=== PATIENT | male | born 1960 | race African-American/Black ===

== ENCOUNTER 2016-11-14 12:17 | Inpatient (IN) | payer MEDICAID ==
[~2016-11-14] VITALS: Ht 170.2 cm; Wt 99.1 kg
[~2016-11-14 12:17] MED LIST: ALPR2TAB2 PO; HYDR12.529 PO; NORT10CA PO; OMEP20CA4 PO
[2016-11-14] MEDS ORDERED: FURO-151 PO (12:31)
[2016-11-14 13:35] LABS: INR 1.1; PROTHROMBIN TIME 11.6 sec (9.4-11.6)
[2016-11-14 13:36] LABS: CARBON DIOXIDE 26 mEq/L (21-32); CHLORIDE 107 mEq/L (98-107)
[2016-11-14 13:39] LABS: BASOPHILS % 1.6 % (0.0-2.0); EOSINOPHILS % 1.6 % (0.0-5.0); HEMATOCRIT. 31.9 % (42.0-52.0); HEMOGLOBIN. 9.2 g/dL (14.0-18.0); LYMPHOCYTES % 14.6 % (20.0-50.0); MEAN CORPUSCULAR HEMOGLOBIN 18.3 pg (28.0-32.0); MEAN CORPUSCULAR VOLUME 63.2 fL (80.0-94.0); MEAN PLATELET VOLUME 9.3 fl (7.4-10.4); MONOCYTES % 9.8 % (2.0-8.0); NEUTROPHILS % 72.4 % (40.0-76.0); PLATELET 161 x1000/uL (130-400); RED BLOOD CELL COUNT 5.05 mill/uL (4.7-6.1); RED CELL DISTRIBUTION WIDTH 21.4 % (11.6-14.6)
[2016-11-14 13:43] LABS: TROPONIN I 0.04 ng/mL (0.00-0.04)
[2016-11-14] MEDS ORDERED: FUROSEMIDE 40MG/4ML VIAL IVP ONE (14:00)
[2016-11-14 14:21] LABS: PLATELET ESTIMATE NORMAL
[2016-11-14] MEDS ORDERED: ONDANSETRON HCL 4MG/2ML VIAL IV PRN (15:45)
[2016-11-14] MEDS ORDERED: ASPIRIN 325MG EC TABLET PO NR (15:45)
[2016-11-14] MEDS ORDERED: CLONIDINE 0.1MG TABLET PO PRN (15:45)
[2016-11-14] MEDS ORDERED: DOCUSATE SODIUM 100MG CAPSULE PO PRN (15:45)
[2016-11-14] MEDS ORDERED: MAGNESIUM/ALUMINUM HYDROXIDE/SIMETHICONE 30ML UDC PO PRN (15:45)
[2016-11-14] MEDS ORDERED: ACETAMINOPHEN 650MG/20.3ML UDC GT PRN (15:45)
[2016-11-14 16:19] LABS: BASOPHILS % 1.6 % (0.0-2.0); EOSINOPHILS % 1.2 % (0.0-5.0); HEMATOCRIT. 31.7 % (42.0-52.0); HEMOGLOBIN. 9.3 g/dL (14.0-18.0); LYMPHOCYTES % 16.7 % (20.0-50.0); MEAN CORPUSCULAR HEMOGLOBIN 18.5 pg (28.0-32.0); MEAN CORPUSCULAR VOLUME 63.2 fL (80.0-94.0); MEAN PLATELET VOLUME 9.3 fl (7.4-10.4); MONOCYTES % 11.3 % (2.0-8.0); NEUTROPHILS % 69.2 % (40.0-76.0); PLATELET 160 x1000/uL (130-400); RED BLOOD CELL COUNT 5.01 mill/uL (4.7-6.1); RED CELL DISTRIBUTION WIDTH 21.2 % (11.6-14.6)
[2016-11-14] MEDS: HYDROCODONE/ACETAMINOPHEN 5/325MG TABLET PO PRN ×2 (16:24→21:24)
[2016-11-14] MEDS ORDERED: LORAZEPAM 1MG TABLET PO ONE (17:00)
[2016-11-14 20:45] VITALS: BP 134/86
[2016-11-14 20:56] VITALS: BP 117/74
[2016-11-14 21:00] VITALS: BP 134/86
[2016-11-14] MEDS: CARVEDILOL 3.125 MG TABLET PO SCH (21:11)
[2016-11-14] MEDS: ENOXAPARIN 30MG/0.3ML SYR SUBCUT SCH (21:11)
[2016-11-15 00:10] VITALS: BP 149/91
[2016-11-15] MEDS: HYDROCODONE/ACETAMINOPHEN 5/325MG TABLET PO PRN ×4 (01:49→19:58)
[2016-11-15 04:48] VITALS: BP 141/98
[2016-11-15 05:27] LABS: CLARITY URINE CLEAR (CLEAR); COLOR URINE YELLOW (YELLOW); GLUCOSE URINE NEGATIVE (NEGATIVE); KETONES URINE NEGATIVE (NEGATIVE); LEUKOCYTE ESTERASE URINE NEGATIVE (NEGATIVE); NITRITE URINE NEGATIVE (NEGATIVE); OCCULT BLOOD URINE NEGATIVE (NEGATIVE); PH URINE 6.5 (4.5-8.0); PROTEIN URINE TRACE (NEGATIVE); SPECIFIC GRAVITY URINE 1.022 (1.005-1.030)
[2016-11-15 05:41] LABS: *AMPHETAMINES SCREEN URINE NEGATIVE (NEGATIVE); *BARBITURATES SCREEN URINE NEGATIVE (NEGATIVE); *BENZODIAZEPINES SCREEN URINE NEGATIVE (NEGATIVE); *COCAINE SCREEN URINE PRESUMTIVE POSITIVE (NEGATIVE); CANNABINOID URINE SCREEN NEGATIVE (NEGATIVE); METHADONE URINE SCREEN NEGATIVE (NEGATIVE); OPIATES URINE SCREEN PRESUMTIVE POSITIVE (NEGATIVE); PHENCYCLIDINE URINE SCREEN NEGATIVE (NEGATIVE)
[2016-11-15] MEDS: OMEPRAZOLE 20MG CAPSULE EXTENDED RELEASE PO SCH (06:18)
[2016-11-15 08:18] LABS: BASOPHILS % 1.1 % (0.0-2.0); EOSINOPHILS % 2.4 % (0.0-5.0); HEMATOCRIT. 31.4 % (42.0-52.0); MEAN CORPUSCULAR HEMOGLOBIN 18.4 pg (28.0-32.0); MEAN CORPUSCULAR VOLUME 63.9 fL (80.0-94.0); MEAN PLATELET VOLUME 9.6 fl (7.4-10.4); MONOCYTES % 11.9 % (2.0-8.0); NEUTROPHILS % 64.6 % (40.0-76.0); PLATELET 148 x1000/uL (130-400); RED BLOOD CELL COUNT 4.92 mill/uL (4.7-6.1); RED CELL DISTRIBUTION WIDTH 22.1 % (11.6-14.6)
[2016-11-15 08:39] VITALS: BP 141/95
[2016-11-15] MEDS: FUROSEMIDE 40MG/4ML VIAL IVP SCH ×2 (09:00→17:26)
[2016-11-15] MEDS ORDERED: LOSARTAN POTASSIUM 25 MG TABLET PO SCH (09:00)
[2016-11-15] MEDS: CARVEDILOL 3.125 MG TABLET PO SCH ×2 (09:01→20:00)
[2016-11-15] MEDS: POTASSIUM CHLORIDE 10MEQ TABLET SR PO SCH (09:01)
[2016-11-15] MEDS: ENOXAPARIN 30MG/0.3ML SYR SUBCUT SCH ×2 (09:01→20:01)
[2016-11-15 09:15] LABS: CREATINE KINASE MB FRACTION 2.7 ng/mL (0.5-3.6); TROPONIN I 0.04 ng/mL (0.00-0.04)
[2016-11-15] MEDS ORDERED: FUROSEMIDE 40MG/4ML VIAL IVP SCH (13:45)
[2016-11-15] MEDS: CLOPIDOGREL 75MG TABLET PO SCH (14:01)
[2016-11-15] MEDS: AMLODIPINE 5MG TABLET PO SCH (14:01)
[2016-11-15] MEDS: IPRATROPIUM/ALBUTEROL 0.5-3(2.5)MG/3ML NEB HHN SCH (23:51)
[2016-11-16] VITALS: BP 147/99
[2016-11-16] MEDS: HYDROCODONE/ACETAMINOPHEN 5/325MG TABLET PO PRN ×4 (00:21→20:27)
[2016-11-16] MEDS: IPRATROPIUM/ALBUTEROL 0.5-3(2.5)MG/3ML NEB HHN SCH ×4 (04:00→20:00)
[2016-11-16] MEDS: OMEPRAZOLE 20MG CAPSULE EXTENDED RELEASE PO SCH (06:06)
[2016-11-16 06:25] LABS: BASOPHILS % 0.6 % (0.0-2.0); EOSINOPHILS % 2.5 % (0.0-5.0); HEMOGLOBIN. 9.1 g/dL (14.0-18.0); LYMPHOCYTES % 19.6 % (20.0-50.0); MEAN CORPUSCULAR HEMOGLOBIN 18.3 pg (28.0-32.0); MEAN CORPUSCULAR VOLUME 62.5 fL (80.0-94.0); MEAN PLATELET VOLUME 9.5 fl (7.4-10.4); MONOCYTES % 9.7 % (2.0-8.0); NEUTROPHILS % 67.6 % (40.0-76.0); PLATELET 141 x1000/uL (130-400); RED BLOOD CELL COUNT 4.96 mill/uL (4.7-6.1); RED CELL DISTRIBUTION WIDTH 21.1 % (11.6-14.6)
[2016-11-16 07:05] LABS: CARBON DIOXIDE 30 mEq/L (21-32); CHLORIDE 99 mEq/L (98-107)
[2016-11-16 07:06] LABS: TROPONIN I 0.05 ng/mL (0.00-0.04)
[2016-11-16 08:13] VITALS: BP 128/77
[2016-11-16] MEDS: FUROSEMIDE 40MG/4ML VIAL IVP SCH ×2 (09:57→18:37)
[2016-11-16] MEDS: ASPIRIN 81MG EC TABLET PO SCH (09:58)
[2016-11-16] MEDS: ENOXAPARIN 30MG/0.3ML SYR SUBCUT SCH ×2 (09:58→20:28)
[2016-11-16] MEDS: POTASSIUM CHLORIDE 10MEQ TABLET SR PO SCH (09:58)
[2016-11-16] MEDS: CLOPIDOGREL 75MG TABLET PO SCH (09:58)
[2016-11-16] MEDS: AMLODIPINE 5MG TABLET PO SCH (09:58)
[2016-11-16] MEDS: LOSARTAN POTASSIUM 25 MG TABLET PO SCH (09:59)
[2016-11-16] MEDS: CARVEDILOL 6.25 MG TABLET PO SCH ×2 (09:59→20:27)
[2016-11-16 12:30] VITALS: BP 126/75
[2016-11-16 16:30] VITALS: BP 121/66
[2016-11-16 20:00] VITALS: BP 134/77
[2016-11-16] MEDS ORDERED: ATORVASTATIN CALCIUM 20MG TABLET PO SCH (21:00)
[2016-11-17] VITALS: BP 128/78
[2016-11-17] MEDS: HYDROCODONE/ACETAMINOPHEN 5/325MG TABLET PO PRN ×2 (01:57→10:18)
[2016-11-17 04:00] VITALS: BP 144/98
[2016-11-17] MEDS: IPRATROPIUM/ALBUTEROL 0.5-3(2.5)MG/3ML NEB HHN SCH ×4 (04:00→09:10)
[2016-11-17 07:48] LABS: BASOPHILS % 0.6 % (0.0-2.0); EOSINOPHILS % 2.9 % (0.0-5.0); HEMATOCRIT. 33.2 % (42.0-52.0); HEMOGLOBIN. 9.7 g/dL (14.0-18.0); LYMPHOCYTES % 19.2 % (20.0-50.0); MEAN CORPUSCULAR HEMOGLOBIN 18.2 pg (28.0-32.0); MEAN CORPUSCULAR VOLUME 61.8 fL (80.0-94.0); MONOCYTES % 10.2 % (2.0-8.0); NEUTROPHILS % 67.1 % (40.0-76.0); PLATELET 155 x1000/uL (130-400); RED BLOOD CELL COUNT 5.36 mill/uL (4.7-6.1); RED CELL DISTRIBUTION WIDTH 21.4 % (11.6-14.6)
[2016-11-17 07:58] LABS: CARBON DIOXIDE 30 mEq/L (21-32); CHLORIDE 98 mEq/L (98-107)
[2016-11-17 08:00] VITALS: BP 130/80
[2016-11-17] MEDS ORDERED: CARVEDILOL 12.5MG TABLET PO SCH (09:00)
[2016-11-17] MEDS ORDERED: FAMOTIDINE 20MG TABLET PO SCH (09:00)
[2016-11-17] MEDS: FUROSEMIDE 40MG/4ML VIAL IVP SCH (10:03)
[2016-11-17] MEDS: LOSARTAN POTASSIUM 25 MG TABLET PO SCH (10:05)
[2016-11-17] MEDS: CLOPIDOGREL 75MG TABLET PO SCH (10:05)
[2016-11-17] MEDS: AMLODIPINE 5MG TABLET PO SCH (10:05)
[2016-11-17] MEDS: POTASSIUM CHLORIDE 10MEQ TABLET SR PO SCH (10:06)
[2016-11-17] MEDS: ASPIRIN 81MG EC TABLET PO SCH (10:06)
[2016-11-17] MEDS: ENOXAPARIN 30MG/0.3ML SYR SUBCUT SCH (10:07)
[2016-11-17 11:56] VITALS: BP 130/80
== END 2016-11-17 12:20 | disposition home or self-care (01) | DRG 140 ==
LOC: ER 12:45 → 5WST 14:13 → EDBEDREQTM 14:15 → EDBEDREQ 14:15 → ENRESERV 19:50 → CANRESERV 19:55 → ENRESERV 19:55
PROVIDERS: ADMIT Internal Medicine Geriatric Medicine; ATTEND Internal Medicine Geriatric Medicine
DX: J44.1 Chronic obstructive pulmonary disease with (acute) exacerbation (principal); I50.23 Acute on chronic systolic (congestive) heart failure; I42.0 Dilated cardiomyopathy; Z99.81 Dependence on supplemental oxygen; E44.1 Mild protein-calorie malnutrition; E66.01 Morbid (severe) obesity due to excess calories; I11.0 Hypertensive heart disease with heart failure; J44.0 Chronic obstructive pulmonary disease with (acute) lower respiratory infection; F20.0 Paranoid schizophrenia; B18.2 Chronic viral hepatitis C; D63.8 Anemia in other chronic diseases classified elsewhere; Z91.14 Patient's other noncompliance with medication regimen; F19.10 Other psychoactive substance abuse, uncomplicated; F14.10 Cocaine abuse, uncomplicated; F32.9 Major depressive disorder, single episode, unspecified; M54.9 Dorsalgia, unspecified; G89.29 Other chronic pain; F41.9 Anxiety disorder, unspecified; E78.00 Pure hypercholesterolemia, unspecified; E78.5 Hyperlipidemia, unspecified; F60.9 Personality disorder, unspecified; I25.10 Atherosclerotic heart disease of native coronary artery without angina pectoris; I25.5 Ischemic cardiomyopathy; Z79.02 Long term (current) use of antithrombotics/antiplatelets; Z79.82 Long term (current) use of aspirin; Z87.891 Personal history of nicotine dependence; Z95.5 Presence of coronary angioplasty implant and graft; Z95.810 Presence of automatic (implantable) cardiac defibrillator; Z68.34 Body mass index [BMI] 34.0-34.9, adult; Z79.899 Other long term (current) drug therapy; I25.2 Old myocardial infarction; J42 Unspecified chronic bronchitis
CPT/HCPCS: 36415; 71010; 80048; 80053; 80305; 81001; 82270; 82553; 83036; 83880; 84443; 84484; 85025; 85610; 93005; 93970; 94640; 96372; 96374; 97162; 99285; J1650; J1940; J7620

== ENCOUNTER 2017-02-08 11:28 | Emergency (ER) | payer MEDICAID ==
[~2017-02-08] VITALS: Ht 170.2 cm; Wt 100.0 kg
[~2017-02-08 11:28] MED LIST changes: +FURO-151 PO
[2017-02-08 11:45] VITALS: BP 153/98
[2017-02-08] MEDS ORDERED: TETANUS, DIPHTHERIA, PERTUSSIS VAC/PF 0.5ML (>7YR OLD) IM ONE (14:45)
== END 2017-02-08 14:54 | disposition home or self-care (01) ==
LOC: ER 12:25
DX: G89.29 Other chronic pain (principal); M54.5 Low back pain; M79.641 Pain in right hand; M79.642 Pain in left hand
CPT/HCPCS: 90471; 90715; 99283

== ENCOUNTER 2017-03-25 19:59 | Emergency (ER) | payer MEDICAID | END 2017-03-25 20:40 | disposition left against medical advice (07) | LOC: ER 19:59 | DX: Z53.21 Procedure and treatment not carried out due to patient leaving prior to being seen by health care provider (principal) ==

== ENCOUNTER 2017-04-17 14:59 | Emergency (ER) | payer MEDICAID | END 2017-04-17 16:52 | disposition left against medical advice (07) | LOC: ER 16:48 | DX: M54.9 Dorsalgia, unspecified (principal); Z53.21 Procedure and treatment not carried out due to patient leaving prior to being seen by health care provider ==

== ENCOUNTER 2017-06-21 14:46 | Emergency (ER) | payer MEDICAID ==
[~2017-06-21] VITALS: Ht 170.2 cm; Wt 104.0 kg
[2017-06-21] MEDS ORDERED: ALBUTEROL (0.083%) 2.5MG/3ML NEB HHN STA (15:03)
[2017-06-21] MEDS ORDERED: IPRATROPIUM BROMIDE (0.02%) 0.5MG/2.5ML NEB HHN STA (15:03)
[2017-06-21] MEDS ORDERED: METHYLPREDNISOLONE SOD SUCC 125 MG/2 ML VIAL IV STA (15:03)
[2017-06-21 15:32] LABS: BASOPHILS % 0.5 % (0.0-2.0); EOSINOPHILS % 1.5 % (0.0-5.0); HEMATOCRIT. 35.1 % (42.0-52.0); HEMOGLOBIN. 11.2 g/dL (14.0-18.0); LYMPHOCYTES % 12.9 % (20.0-50.0); MEAN CORPUSCULAR HEMOGLOBIN 23.3 pg (28.0-32.0); MEAN CORPUSCULAR VOLUME 73.2 fL (80.0-94.0); MEAN PLATELET VOLUME 9.6 fl (7.4-10.4); MONOCYTES % 7.9 % (2.0-8.0); NEUTROPHILS % 77.2 % (40.0-76.0); PLATELET 195 x1000/uL (130-400); RED BLOOD CELL COUNT 4.79 mill/uL (4.7-6.1); RED CELL DISTRIBUTION WIDTH 20.7 % (11.6-14.6)
[2017-06-21 15:39] LABS: CHLORIDE 107 mEq/L (98-107)
[2017-06-21] MEDS ORDERED: FUROSEMIDE 40MG/4ML VIAL IV ONE (18:00)
[2017-06-21] MEDS ORDERED: ASPIRIN 81MG TABLET PO ONE (18:00)
[2017-06-21 18:27] VITALS: BP 151/95
[2017-06-21] MEDS ORDERED: ACETAMINOPHEN WITH CODEINE 300/30MG TABLET PO ONE (18:30)
[2017-06-21] MEDS ORDERED: MAGNESIUM/ALUMINUM HYDROXIDE/SIMETHICONE 30ML UDC PO PRN (19:15)
[2017-06-21] MEDS ORDERED: CLONIDINE 0.1MG TABLET PO PRN (19:15)
[2017-06-21] MEDS ORDERED: ONDANSETRON HCL 4MG/2ML VIAL IV PRN (19:15)
[2017-06-21] MEDS ORDERED: IPRATROPIUM/ALBUTEROL 0.5-3(2.5)MG/3ML NEB INH PRN (19:15)
[2017-06-21] MEDS ORDERED: ACETAMINOPHEN 325MG TABLET PO PRN (19:15)
[2017-06-21] MEDS ORDERED: ENOXAPARIN 40MG/0.4ML SYR SUBCUT SCH (19:15)
[2017-06-21] MEDS ORDERED: METHYLPREDNISOLONE SOD SUCC 125 MG/2 ML VIAL IV SCH (22:00)
[2017-06-22] MEDS ORDERED: FUROSEMIDE 40MG/4ML VIAL IV SCH (09:00)
== END 2017-06-21 20:45 | disposition left against medical advice (07) ==
LOC: ER 14:46 → CANRESERV 19:31 → ENRESERV 19:31 → ER 20:45 → CANBEDREQ 20:50
DX: R06.03 Acute respiratory distress (principal); J44.1 Chronic obstructive pulmonary disease with (acute) exacerbation; I11.0 Hypertensive heart disease with heart failure; I50.9 Heart failure, unspecified; R94.31 Abnormal electrocardiogram [ECG] [EKG]; E78.00 Pure hypercholesterolemia, unspecified; F17.210 Nicotine dependence, cigarettes, uncomplicated; Z95.0 Presence of cardiac pacemaker
CPT/HCPCS: 36415; 71045; 80053; 83880; 84484; 85025; 85044; 93005; 94640; 96374; 96375; 99285; J1940; J2930; J7611; Z7610

== ENCOUNTER 2017-08-24 09:28 | Inpatient (IN) | payer MEDICAID ==
[~2017-08-24] VITALS: Ht 170.2 cm; Wt 92.1 kg
[~2017-08-24 09:28] MED LIST changes: +CARV12.545 PO; +CLOP75TA15 PO; +HYDR-4001 PO; +POTA20TA82 PO
[2017-08-24] MEDS ORDERED: ASPIRIN 81MG TABLET PO ONE (10:00)
[2017-08-24 10:09] LABS: BASOPHILS % 0.4 % (0.0-2.0); EOSINOPHILS % 1.1 % (0.0-5.0); HEMATOCRIT. 39.3 % (42.0-52.0); HEMOGLOBIN. 12.1 g/dL (14.0-18.0); LYMPHOCYTES % 13.2 % (20.0-50.0); MEAN CORPUSCULAR HEMOGLOBIN 22.3 pg (28.0-32.0); MEAN CORPUSCULAR VOLUME 72.6 fL (80.0-94.0); MEAN PLATELET VOLUME 9.1 fl (7.4-10.4); MONOCYTES % 9.9 % (2.0-8.0); NEUTROPHILS % 75.4 % (40.0-76.0); PLATELET 225 x1000/uL (130-400); RED BLOOD CELL COUNT 5.41 mill/uL (4.7-6.1); RED CELL DISTRIBUTION WIDTH 18.7 % (11.6-14.6)
[2017-08-24 10:11] LABS: CHLORIDE 106 mEq/L (98-107)
[2017-08-24 10:14] LABS: PROTHROMBIN TIME 10.3 sec (9.4-11.6)
[2017-08-24] MEDS ORDERED: FUROSEMIDE 40MG/4ML VIAL IV ONE (12:30)
[2017-08-24] MEDS ORDERED: NITROGLYCERIN OINT 1GM/INCH UDPKT TD ONE (12:30)
[2017-08-24] MEDS: NITROGLYCERIN 0.4MG TABLET SL SL PRN ×2 (12:53→13:06)
[2017-08-24] MEDS ORDERED: POTASSIUM CHLORIDE 20MEQ TABLET SR PO ONE (13:00)
[2017-08-24] MEDS ORDERED: DOCUSATE SODIUM 100MG CAPSULE PO PRN (17:45)
[2017-08-24] MEDS ORDERED: ACETAMINOPHEN 325MG TABLET PO PRN (17:45)
[2017-08-24] MEDS ORDERED: IPRATROPIUM/ALBUTEROL 0.5-3(2.5)MG/3ML NEB HHN PRN (18:00)
[2017-08-24] MEDS: ALPRAZOLAM 0.5 MG TABLET PO PRN (18:58)
[2017-08-24] MEDS ORDERED: OMEPRAZOLE 20MG CAPSULE EXTENDED RELEASE PO NR (19:00)
[2017-08-24 21:00] VITALS: BP 151/84
[2017-08-24 21:45] VITALS: BP 151/84
[2017-08-24] MEDS: SODIUM CHLORIDE 0.9% INJ 3ML FLUSH IVF SCH (22:00)
[2017-08-24] MEDS: CLOPIDOGREL 75MG TABLET PO SCH (23:33)
[2017-08-24] MEDS: NORTRIPTYLINE HCL 25MG CAPSULE PO SCH (23:33)
[2017-08-24] MEDS: POTASSIUM CHLORIDE 20MEQ TABLET SR PO SCH (23:33)
[2017-08-25] VITALS (7 sets, daily range): BP systolic 101–146; BP diastolic 46–95
[2017-08-25] MEDS: HYDROMORPHONE HCL/PF 2MG/ML CPJ IV PRN ×3 (03:35→23:45)
[2017-08-25] MEDS: SODIUM CHLORIDE 0.9% INJ 3ML FLUSH IVF SCH ×3 (04:06→23:26)
[2017-08-25] MEDS: NITROGLYCERIN 0.1MG/HR PATCH TOP SCH (05:24)
[2017-08-25] MEDS: NORTRIPTYLINE HCL 25MG CAPSULE PO SCH ×4 (05:24→23:43)
[2017-08-25 06:44] LABS: BASOPHILS % 0.4 % (0.0-2.0); EOSINOPHILS % 2.2 % (0.0-5.0); HEMATOCRIT. 38.3 % (42.0-52.0); HEMOGLOBIN. 12.2 g/dL (14.0-18.0); LYMPHOCYTES % 19.4 % (20.0-50.0); MEAN CORPUSCULAR HEMOGLOBIN 23.3 pg (28.0-32.0); MEAN CORPUSCULAR VOLUME 73.1 fL (80.0-94.0); MEAN PLATELET VOLUME 9.3 fl (7.4-10.4); MONOCYTES % 9.8 % (2.0-8.0); NEUTROPHILS % 68.2 % (40.0-76.0); PLATELET 198 x1000/uL (130-400); RED BLOOD CELL COUNT 5.24 mill/uL (4.7-6.1); RED CELL DISTRIBUTION WIDTH 18.9 % (11.6-14.6)
[2017-08-25 07:10] LABS: CHLORIDE 107 mEq/L (98-107)
[2017-08-25 07:29] LABS: VITAMIN B12 SERUM 355 pg/mL (211-911)
[2017-08-25 07:44] LABS: HDL CHOLESTEROL 53 mg/dL (40-59); LDL CHOLESTEROL 65 mg/dL (5-100)
[2017-08-25] MEDS: BUDESONIDE 0.5MG/2ML NEB HHN SCH (07:51)
[2017-08-25] MEDS: OMEPRAZOLE 20MG CAPSULE EXTENDED RELEASE PO SCH (08:09)
[2017-08-25] MEDS: CLOPIDOGREL 75MG TABLET PO SCH (08:10)
[2017-08-25] MEDS: ENOXAPARIN 30MG/0.3ML SYR SUBCUT SCH ×2 (08:11→23:26)
[2017-08-25] MEDS: CARVEDILOL 12.5MG TABLET PO SCH ×2 (08:14→23:25)
[2017-08-25] MEDS ORDERED: FUROSEMIDE 20MG/2ML VIAL IVP SCH (09:00)
[2017-08-25] MEDS ORDERED: LOSARTAN POTASSIUM 50 MG TABLET PO SCH (11:00)
[2017-08-25] MEDS ORDERED: ASPIRIN 81MG TABLET PO SCH (13:45)
[2017-08-25] MEDS: LOSARTAN POTASSIUM 50 MG TABLET PO SCH ×2 (14:30→21:00)
[2017-08-25] MEDS: ALPRAZOLAM 0.5 MG TABLET PO PRN (17:00)
[2017-08-25] MEDS: FUROSEMIDE 40MG/4ML VIAL IVP SCH (17:00)
[2017-08-25] MEDS: POTASSIUM CHLORIDE 20MEQ TABLET SR PO SCH (17:00)
[2017-08-26] MEDS: BUDESONIDE 0.5MG/2ML NEB HHN SCH
[2017-08-26 04:00] VITALS: BP 101/60
[2017-08-26 05:10] VITALS: BP 101/60
[2017-08-26] MEDS: NITROGLYCERIN 0.1MG/HR PATCH TOP SCH (06:00)
[2017-08-26] MEDS: NORTRIPTYLINE HCL 25MG CAPSULE PO SCH (06:00)
[2017-08-26] MEDS: SODIUM CHLORIDE 0.9% INJ 3ML FLUSH IVF SCH (06:54)
[2017-08-26] MEDS: OMEPRAZOLE 20MG CAPSULE EXTENDED RELEASE PO SCH (06:55)
[2017-08-26] MEDS: FUROSEMIDE 40MG/4ML VIAL IVP SCH (06:55)
== END 2017-08-26 07:55 | disposition home or self-care (01) | DRG 194 ==
LOC: ER 09:52 → 7WST 12:59 → ENRESERV 19:48
PROVIDERS: ADMIT Ophthalmology; ATTEND Ophthalmology
DX: I11.0 Hypertensive heart disease with heart failure (principal); K73.9 Chronic hepatitis, unspecified; F20.9 Schizophrenia, unspecified; E78.5 Hyperlipidemia, unspecified; I50.23 Acute on chronic systolic (congestive) heart failure; J44.9 Chronic obstructive pulmonary disease, unspecified; E87.6 Hypokalemia; F41.9 Anxiety disorder, unspecified; I25.10 Atherosclerotic heart disease of native coronary artery without angina pectoris; I25.5 Ischemic cardiomyopathy; K21.9 Gastro-esophageal reflux disease without esophagitis; G89.29 Other chronic pain; M54.9 Dorsalgia, unspecified; E66.9 Obesity, unspecified; M13.88 Other specified arthritis, other site; F19.10 Other psychoactive substance abuse, uncomplicated; I25.2 Old myocardial infarction; Z79.02 Long term (current) use of antithrombotics/antiplatelets; Z79.82 Long term (current) use of aspirin; Z82.49 Family history of ischemic heart disease and other diseases of the circulatory system; Z95.810 Presence of automatic (implantable) cardiac defibrillator; Z98.61 Coronary angioplasty status; Z79.899 Other long term (current) drug therapy; Z91.14 Patient's other noncompliance with medication regimen; Z87.891 Personal history of nicotine dependence; Z68.31 Body mass index [BMI] 31.0-31.9, adult
CPT/HCPCS: 36415; 71045; 80048; 80053; 80061; 82607; 83880; 84443; 84484; 85025; 85610; 93005; 96374; 99285; J1170; J1650; J1940; J7620; J7626

== ENCOUNTER 2017-11-25 04:16 | Inpatient (IN) | payer MEDICAID ==
[~2017-11-25] VITALS: Ht 170.2 cm; Wt 98.9 kg
[~2017-11-25 04:16] MED LIST changes: +ASPI-1159 PO; +RISP4 PO
[2017-11-25] MEDS ORDERED: ALBUTEROL (0.083%) 2.5MG/3ML NEB HHN STA (06:47)
[2017-11-25] MEDS ORDERED: ASPIRIN 325MG TABLET PO ONE (07:00)
[2017-11-25] MEDS: NITROGLYCERIN 0.4MG TABLET SL SL PRN ×2 (07:05→08:31)
[2017-11-25 07:54] LABS: BASOPHILS % 0.6 % (0.0-2.0); EOSINOPHILS % 2.5 % (0.0-5.0); HEMATOCRIT. 38.8 % (42.0-52.0); LYMPHOCYTES % 13.6 % (20.0-50.0); MEAN CORPUSCULAR VOLUME 77.8 fL (80.0-94.0); MEAN PLATELET VOLUME 9.5 fl (7.4-10.4); MONOCYTES % 7.3 % (2.0-8.0); PLATELET 176 x1000/uL (130-400); RED BLOOD CELL COUNT 4.98 mill/uL (4.7-6.1); RED CELL DISTRIBUTION WIDTH 21.8 % (11.6-14.6)
[2017-11-25 07:59] LABS: PROTHROMBIN TIME 10.2 sec (9.1-11.1)
[2017-11-25 08:02] LABS: CHLORIDE 108 mEq/L (98-107)
[2017-11-25] MEDS ORDERED: FUROSEMIDE 40MG/4ML VIAL IVP ONE (08:15)
[2017-11-25 09:19] LABS: *AMPHETAMINES SCREEN URINE NEGATIVE (NEGATIVE); *BARBITURATES SCREEN URINE NEGATIVE (NEGATIVE); *BENZODIAZEPINES SCREEN URINE NEGATIVE (NEGATIVE); *COCAINE SCREEN URINE PRESUMTIVE POSITIVE (NEGATIVE)
[2017-11-25 09:20] LABS: CANNABINOID URINE SCREEN NEGATIVE (NEGATIVE); METHADONE URINE SCREEN NEGATIVE (NEGATIVE); OPIATES URINE SCREEN NEGATIVE (NEGATIVE); PHENCYCLIDINE URINE SCREEN NEGATIVE (NEGATIVE)
[2017-11-25 13:10] VITALS: BP 111/54
[2017-11-25] MEDS: DILTIAZEM HCL 60MG TABLET PO SCH ×2 (14:00→22:42)
[2017-11-25] MEDS: LOSARTAN POTASSIUM 25 MG TABLET PO SCH (14:00)
[2017-11-25 16:00] VITALS: BP_SYST 115; BP_SYST 130; BP_DIAS 54; BP_DIAS 90
[2017-11-25] MEDS: HYDROCODONE/APAP 7.5/325MG 1 TAB TABLET PO PRN (17:24)
[2017-11-25] MEDS: RIVAROXABAN 20 MG TABLET PO SCH (17:24)
[2017-11-25] MEDS ORDERED: ALPRAZOLAM 0.5 MG TABLET PO PRN (18:00)
[2017-11-25] MEDS ORDERED: ASPIRIN 81MG TABLET PO SCH (18:00)
[2017-11-25] MEDS: CLOPIDOGREL 75MG TABLET PO SCH (18:00)
[2017-11-25] MEDS ORDERED: ACETAMINOPHEN 325MG TABLET PO PRN (18:00)
[2017-11-25] MEDS ORDERED: HYDROCODONE/ACETAMINOPHEN 5/325MG TABLET PO PRN (18:00)
[2017-11-25] MEDS: IPRATROPIUM/ALBUTEROL 0.5-3(2.5)MG/3ML NEB INH PRN (18:20)
[2017-11-25 20:00] VITALS: BP 105/61
[2017-11-25] MEDS: FUROSEMIDE 40MG TABLET PO SCH (20:50)
[2017-11-25] MEDS ORDERED: ATORVASTATIN CALCIUM 40MG TABLET PO SCH (21:00)
[2017-11-25] MEDS ORDERED: ATORVASTATIN CALCIUM 20MG TABLET PO SCH (21:00)
[2017-11-25] MEDS ORDERED: RISPERIDONE 1MG TABLET PO SCH (21:00)
[2017-11-25] MEDS: SODIUM CHLORIDE 0.9% INJ 3ML FLUSH IVF SCH (22:44)
[2017-11-26] VITALS: BP 130/83
[2017-11-26 04:00] VITALS: BP 123/101
[2017-11-26] MEDS: SODIUM CHLORIDE 0.9% INJ 3ML FLUSH IVF SCH ×2 (06:21→14:00)
[2017-11-26] MEDS: DILTIAZEM HCL 60MG TABLET PO SCH ×2 (06:21→14:00)
[2017-11-26 06:45] LABS: BASOPHILS % 0.6 % (0.0-2.0); EOSINOPHILS % 2.3 % (0.0-5.0); HEMATOCRIT. 41.4 % (42.0-52.0); LYMPHOCYTES % 17.9 % (20.0-50.0); MEAN CORPUSCULAR HEMOGLOBIN 24.2 pg (28.0-32.0); MEAN CORPUSCULAR VOLUME 77.2 fL (80.0-94.0); MONOCYTES % 8.8 % (2.0-8.0); NEUTROPHILS % 70.4 % (40.0-76.0); PLATELET 173 x1000/uL (130-400); RED BLOOD CELL COUNT 5.37 mill/uL (4.7-6.1); RED CELL DISTRIBUTION WIDTH 21.6 % (11.6-14.6)
[2017-11-26 07:26] LABS: CHLORIDE 103 mEq/L (98-107)
[2017-11-26 07:52] LABS: HDL CHOLESTEROL 43 mg/dL (40-59); LDL CHOLESTEROL 70 mg/dL (5-100)
[2017-11-26 08:00] VITALS: BP 113/78
[2017-11-26] MEDS: CLOPIDOGREL 75MG TABLET PO SCH (08:14)
[2017-11-26] MEDS: LOSARTAN POTASSIUM 25 MG TABLET PO SCH (08:15)
[2017-11-26] MEDS: FUROSEMIDE 40MG TABLET PO SCH (08:15)
[2017-11-26] MEDS: HYDROCODONE/APAP 7.5/325MG 1 TAB TABLET PO PRN (08:24)
[2017-11-26] MEDS ORDERED: ASPIRIN 81MG TABLET PO SCH (09:00)
[2017-11-26] MEDS ORDERED: CARVEDILOL 12.5MG TABLET PO SCH (09:00)
[2017-11-26] MEDS ORDERED: OMEPRAZOLE 20MG CAPSULE EXTENDED RELEASE PO SCH (09:00)
[2017-11-26] MEDS ORDERED: NORTRIPTYLINE HCL 10MG CAPSULE PO SCH (09:00)
[2017-11-26] MEDS ORDERED: POTASSIUM CHLORIDE 20MEQ TABLET SR PO SCH (09:00)
[2017-11-26] MEDS: IPRATROPIUM/ALBUTEROL 0.5-3(2.5)MG/3ML NEB INH PRN (10:29)
[2017-11-26 12:00] VITALS: BP 120/76
[2017-11-26 14:43] VITALS: BP 130/90
[2017-11-26 16:00] VITALS: BP 99/78
[2017-11-26] MEDS: RIVAROXABAN 20 MG TABLET PO SCH (17:26)
== END 2017-11-26 18:46 | disposition home or self-care (01) | DRG 816 ==
LOC: ER 04:16 → 7WST 05:46 → EDBEDREQTM 08:48 → EDBEDREQ 08:48 → ENRESERV 11:53
PROVIDERS: ADMIT Ophthalmology; ATTEND Ophthalmology
DX: T40.5X1A Poisoning by cocaine, accidental (unintentional), initial encounter (principal); I50.23 Acute on chronic systolic (congestive) heart failure; F20.9 Schizophrenia, unspecified; I48.0 Paroxysmal atrial fibrillation; I25.10 Atherosclerotic heart disease of native coronary artery without angina pectoris; I11.0 Hypertensive heart disease with heart failure; I25.5 Ischemic cardiomyopathy; J44.9 Chronic obstructive pulmonary disease, unspecified; E78.5 Hyperlipidemia, unspecified; G89.29 Other chronic pain; B18.2 Chronic viral hepatitis C; M54.9 Dorsalgia, unspecified; F41.9 Anxiety disorder, unspecified; F14.10 Cocaine abuse, uncomplicated; F32.9 Major depressive disorder, single episode, unspecified; Z91.19 Patient's noncompliance with other medical treatment and regimen; Z95.0 Presence of cardiac pacemaker; Z95.5 Presence of coronary angioplasty implant and graft; Z82.49 Family history of ischemic heart disease and other diseases of the circulatory system; Z87.891 Personal history of nicotine dependence; Z79.82 Long term (current) use of aspirin; Z79.899 Other long term (current) drug therapy; Y92.89 Other specified places as the place of occurrence of the external cause
CPT/HCPCS: 36415; 71045; 80048; 80053; 80061; 80305; 83605; 83735; 83880; 84443; 84484; 85025; 85610; 93005; 94640; 96374; 99285; J1940; J7611; J7620

== ENCOUNTER 2017-12-21 11:29 | Inpatient (IN) | payer MEDICAID ==
[~2017-12-21] VITALS: Ht 170.2 cm; Wt 99.8 kg
[~2017-12-21 11:29] MED LIST changes: +ATOR40TA70 PO; +FERR325T6 PO; +LISI-186 PO; +PARO30TA62 PO
[2017-12-21] MEDS ORDERED: MORPHINE SULFATE 4 MG/ML CPJ (NOT FOR IM USE) IV STA (13:45)
[2017-12-21] MEDS ORDERED: ONDANSETRON HCL 4MG/2ML INJ IV STA (13:45)
[2017-12-21] MEDS ORDERED: ASPIRIN 81MG TABLET PO ONE (13:45)
[2017-12-21] MEDS ORDERED: ALBUTEROL (0.083%) 2.5MG/3ML NEB HHN ONE (14:00)
[2017-12-21 15:06] LABS: CHLORIDE 108 mEq/L (98-107)
[2017-12-21 15:09] LABS: BASOPHILS % 0.6 % (0.0-2.0); EOSINOPHILS % 1.6 % (0.0-5.0); HEMATOCRIT. 40.4 % (42.0-52.0); HEMOGLOBIN. 12.5 g/dL (14.0-18.0); LYMPHOCYTES % 15.1 % (20.0-50.0); MEAN CORPUSCULAR HEMOGLOBIN 24.4 pg (28.0-32.0); MEAN CORPUSCULAR VOLUME 78.9 fL (80.0-94.0); MEAN PLATELET VOLUME 10.2 fl (7.4-10.4); MONOCYTES % 7.2 % (2.0-8.0); NEUTROPHILS % 75.5 % (40.0-76.0); PLATELET 179 x1000/uL (130-400); RED BLOOD CELL COUNT 5.12 mill/uL (4.7-6.1); RED CELL DISTRIBUTION WIDTH 20.9 % (11.6-14.6)
[2017-12-21 15:14] LABS: CLARITY URINE CLEAR (CLEAR); COLOR URINE YELLOW (YELLOW); KETONES URINE NEGATIVE (NEGATIVE); LEUKOCYTE ESTERASE URINE 2+ (NEGATIVE); NITRITE URINE NEGATIVE (NEGATIVE); OCCULT BLOOD URINE NEGATIVE (NEGATIVE); PROTEIN URINE NEGATIVE (NEGATIVE); SPECIFIC GRAVITY URINE 1.017 (1.005-1.030); UROBILINOGEN URINE 0.2 E.U./dL (0.2-1.0)
[2017-12-21] MEDS ORDERED: FUROSEMIDE 40MG/4ML VIAL IV ONE (16:00)
[2017-12-21] MEDS ORDERED: ACETAMINOPHEN 325MG TABLET PO PRN (16:15)
[2017-12-21] MEDS ORDERED: NITROGLYCERIN OINT 1GM/INCH UDPKT TD ONE (16:15)
[2017-12-21] MEDS ORDERED: CLONIDINE 0.1MG TABLET PO PRN (16:45)
[2017-12-21] MEDS ORDERED: ASPIRIN 325MG EC TABLET PO SCH (17:00)
[2017-12-21] MEDS ORDERED: ALBUTEROL 6.7GM HFA INHALER ORI PRN (20:00)
[2017-12-21] MEDS: HYDROCODONE/ACETAMINOPHEN 5/325MG TABLET PO PRN (21:55)
[2017-12-21] MEDS: NORTRIPTYLINE HCL 25MG CAPSULE PO SCH (21:56)
[2017-12-21 23:58] VITALS: BP 100/68
[2017-12-22] VITALS: BP 100/68
[2017-12-22] MEDS ORDERED: CLONIDINE 0.1MG TABLET PO PRN (00:30)
[2017-12-22 04:00] VITALS: BP 120/84
[2017-12-22] MEDS: NITROGLYCERIN OINT 1GM/INCH UDPKT TD SCH ×3 (06:00→20:59)
[2017-12-22 07:37] LABS: BASOPHILS % 0.6 % (0.0-2.0); EOSINOPHILS % 3.1 % (0.0-5.0); HEMATOCRIT. 38.4 % (42.0-52.0); LYMPHOCYTES % 13.4 % (20.0-50.0); MEAN CORPUSCULAR HEMOGLOBIN 24.6 pg (28.0-32.0); MEAN CORPUSCULAR VOLUME 78.5 fL (80.0-94.0); MEAN PLATELET VOLUME 9.7 fl (7.4-10.4); MONOCYTES % 7.6 % (2.0-8.0); NEUTROPHILS % 75.3 % (40.0-76.0); PLATELET 156 x1000/uL (130-400); RED BLOOD CELL COUNT 4.89 mill/uL (4.7-6.1); RED CELL DISTRIBUTION WIDTH 21.6 % (11.6-14.6)
[2017-12-22 07:48] LABS: CHLORIDE 105 mEq/L (98-107)
[2017-12-22 08:27] LABS: CREATINE KINASE 75 IU/L (39-308); CREATINE KINASE MB FRACTION 3.5 ng/mL (0.5-3.6); HDL CHOLESTEROL 48 mg/dL (40-59); LDL CHOLESTEROL 71 mg/dL (5-100)
[2017-12-22 08:30] VITALS: BP 131/99
[2017-12-22] MEDS: CARVEDILOL 12.5MG TABLET PO SCH ×2 (08:55→20:58)
[2017-12-22] MEDS: CLOPIDOGREL 75MG TABLET PO SCH (08:55)
[2017-12-22] MEDS: HYDROCODONE/ACETAMINOPHEN 5/325MG TABLET PO PRN ×2 (08:57→15:31)
[2017-12-22] MEDS: FUROSEMIDE 40MG/4ML VIAL IVP SCH ×2 (08:57→21:00)
[2017-12-22 12:00] VITALS: BP 100/72
[2017-12-22] MEDS ORDERED: PNEUMOCOCCAL 23-VAL P-SAC VAC 0.5 ML IM ONE (12:00)
[2017-12-22 16:00] VITALS: BP 104/62
[2017-12-22] MEDS: ASPIRIN 81MG EC TABLET PO SCH (17:49)
[2017-12-22] MEDS: ALBUTEROL (0.083%) 2.5MG/3ML NEB HHN PRN (18:05)
[2017-12-22 20:00] VITALS: BP 115/80
[2017-12-22] MEDS: NORTRIPTYLINE HCL 25MG CAPSULE PO SCH (20:59)
[2017-12-22] MEDS: ATORVASTATIN CALCIUM 40MG TABLET PO SCH (20:59)
[2017-12-22] MEDS: RISPERIDONE 1MG TABLET PO SCH (20:59)
[2017-12-23] VITALS: BP 126/82
[2017-12-23] MEDS: HYDROCODONE/ACETAMINOPHEN 5/325MG TABLET PO PRN ×4 (00:11→20:34)
[2017-12-23] MEDS: ALBUTEROL (0.083%) 2.5MG/3ML NEB HHN PRN ×2 (06:55→14:30)
[2017-12-23 07:37] VITALS: BP 147/100
[2017-12-23] MEDS: CLOPIDOGREL 75MG TABLET PO SCH (09:05)
[2017-12-23] MEDS: ASPIRIN 81MG EC TABLET PO SCH ×2 (09:06→16:44)
[2017-12-23] MEDS: CARVEDILOL 12.5MG TABLET PO SCH ×2 (09:08→20:43)
[2017-12-23] MEDS: FUROSEMIDE 40MG/4ML VIAL IVP SCH ×2 (09:08→20:34)
[2017-12-23 11:58] VITALS: BP 111/63
[2017-12-23] MEDS: NITROGLYCERIN OINT 1GM/INCH UDPKT TD SCH ×2 (14:00→20:37)
[2017-12-23 14:39] LABS: BASOPHILS % 0.8 % (0.0-2.0); EOSINOPHILS % 1.6 % (0.0-5.0); HEMATOCRIT. 41.8 % (42.0-52.0); HEMOGLOBIN. 13.1 g/dL (14.0-18.0); LYMPHOCYTES % 14.7 % (20.0-50.0); MEAN CORPUSCULAR HEMOGLOBIN 24.7 pg (28.0-32.0); MEAN CORPUSCULAR VOLUME 78.6 fL (80.0-94.0); NEUTROPHILS % 72.9 % (40.0-76.0); PLATELET 184 x1000/uL (130-400); RED BLOOD CELL COUNT 5.32 mill/uL (4.7-6.1); RED CELL DISTRIBUTION WIDTH 20.9 % (11.6-14.6)
[2017-12-23 15:22] LABS: CHLORIDE 99 mEq/L (98-107)
[2017-12-23 16:00] VITALS: BP 129/100
[2017-12-23 20:00] VITALS: BP 115/79
[2017-12-23] MEDS: RISPERIDONE 1MG TABLET PO SCH ×2 (20:33→20:37)
[2017-12-23] MEDS: NORTRIPTYLINE HCL 25MG CAPSULE PO SCH (20:33)
[2017-12-23] MEDS: ATORVASTATIN CALCIUM 40MG TABLET PO SCH (20:42)
[2017-12-24] VITALS: BP 108/63
[2017-12-24 02:34] VITALS: BP 109/79
[2017-12-24] MEDS: HYDROCODONE/ACETAMINOPHEN 5/325MG TABLET PO PRN (02:38)
[2017-12-24 04:00] VITALS: BP 116/86
[2017-12-24] MEDS: NITROGLYCERIN OINT 1GM/INCH UDPKT TD SCH (05:04)
[2017-12-24 08:00] VITALS: BP 131/106
[2017-12-24] MEDS: FUROSEMIDE 40MG/4ML VIAL IVP SCH (08:19)
[2017-12-24] MEDS: ASPIRIN 81MG EC TABLET PO SCH (08:19)
[2017-12-24] MEDS: CLOPIDOGREL 75MG TABLET PO SCH (08:19)
[2017-12-24] MEDS: CARVEDILOL 12.5MG TABLET PO SCH (08:20)
[2017-12-24 12:00] VITALS: BP 123/85
== END 2017-12-24 13:44 | disposition home health service (06) | DRG 198 ==
LOC: ER 11:29 → 8WST 16:06 → EDBEDREQTM 16:18 → EDBEDREQ 16:18 → ENRESERV 22:06
PROVIDERS: ADMIT Internal Medicine Critical Care Medicine; ATTEND Internal Medicine Critical Care Medicine
DX: R07.89 Other chest pain (principal); I25.10 Atherosclerotic heart disease of native coronary artery without angina pectoris; I50.23 Acute on chronic systolic (congestive) heart failure; E44.1 Mild protein-calorie malnutrition; F11.20 Opioid dependence, uncomplicated; I11.0 Hypertensive heart disease with heart failure; F20.9 Schizophrenia, unspecified; I48.0 Paroxysmal atrial fibrillation; F12.10 Cannabis abuse, uncomplicated; F14.10 Cocaine abuse, uncomplicated; F17.210 Nicotine dependence, cigarettes, uncomplicated; B18.2 Chronic viral hepatitis C; E78.00 Pure hypercholesterolemia, unspecified; I25.5 Ischemic cardiomyopathy; K21.9 Gastro-esophageal reflux disease without esophagitis; J44.9 Chronic obstructive pulmonary disease, unspecified; F17.200 Nicotine dependence, unspecified, uncomplicated; M54.5 Low back pain; F32.9 Major depressive disorder, single episode, unspecified; F41.9 Anxiety disorder, unspecified; G89.29 Other chronic pain; I25.2 Old myocardial infarction; Z82.49 Family history of ischemic heart disease and other diseases of the circulatory system; Z91.19 Patient's noncompliance with other medical treatment and regimen; Z95.5 Presence of coronary angioplasty implant and graft; Z95.810 Presence of automatic (implantable) cardiac defibrillator; Z79.82 Long term (current) use of aspirin; Z79.899 Other long term (current) drug therapy
CPT/HCPCS: 36415; 71045; 80048; 80061; 82550; 82553; 83735; 83880; 84443; 84484; 85379; 93005; 93970; 94640; 96374; 96375; 99285; J1940; J2270; J2405; J7611

== ENCOUNTER 2018-01-14 03:25 | Emergency (ER) | payer MEDICAID, OTHER ==
[~2018-01-14 03:25] MED LIST changes: -ALPR2TAB2 PO; -HYDR-4001 PO; -HYDR12.529 PO; -NORT10CA PO; -POTA20TA82 PO
== END 2018-01-14 03:45 | disposition left against medical advice (07) ==
LOC: ER 03:25
DX: Z53.21 Procedure and treatment not carried out due to patient leaving prior to being seen by health care provider (principal)

== ENCOUNTER 2018-04-04 12:11 | Emergency (ER) | payer MEDICAID ==
[~2018-04-04] VITALS: Ht 170.2 cm; Wt 102.0 kg
[2018-04-04 17:38] VITALS: BP 152/97
== END 2018-04-04 17:51 | disposition home or self-care (01) ==
LOC: ER 13:53
DX: S49.91XA Unspecified injury of right shoulder and upper arm, initial encounter (principal); I11.0 Hypertensive heart disease with heart failure; I50.9 Heart failure, unspecified; J45.909 Unspecified asthma, uncomplicated; E78.00 Pure hypercholesterolemia, unspecified; F32.9 Major depressive disorder, single episode, unspecified; F41.9 Anxiety disorder, unspecified; Z98.890 Other specified postprocedural states; Z79.899 Other long term (current) drug therapy; Y08.89XA Assault by other specified means, initial encounter; Y93.89 Activity, other specified; Y92.89 Other specified places as the place of occurrence of the external cause; Y99.8 Other external cause status
CPT/HCPCS: 99283

== ENCOUNTER 2018-07-24 07:43 | Inpatient (IN) | payer MEDICAID ==
[~2018-07-24] VITALS: Ht 170.2 cm; Wt 105.9 kg
[~2018-07-24 07:43] MED LIST changes: -ASPI-1159 PO; +ASPI-1393 PO
[2018-07-24] MEDS ORDERED: ASPIRIN 81MG TABLET PO ONE (08:45)
[2018-07-24] MEDS ORDERED: NITROGLYCERIN 0.4MG TABLET SL SL PRN (08:45)
[2018-07-24 09:02] LABS: BASOPHILS % 0.6 % (0.0-2.0); EOSINOPHILS % 1.3 % (0.0-5.0); HEMATOCRIT. 47.5 % (42.0-52.0); HEMOGLOBIN. 15.4 g/dL (14.0-18.0); LYMPHOCYTES % 21.9 % (20.0-50.0); MEAN CORPUSCULAR HEMOGLOBIN 28.3 pg (28.0-32.0); MEAN PLATELET VOLUME 9.2 fl (7.4-10.4); MONOCYTES % 11.8 % (2.0-8.0); NEUTROPHILS % 64.4 % (40.0-76.0); PLATELET 168 x1000/uL (130-400); RED BLOOD CELL COUNT 5.45 mill/uL (4.7-6.1); RED CELL DISTRIBUTION WIDTH 18.4 % (11.6-14.6)
[2018-07-24 09:04] LABS: CHLORIDE 105 mEq/L (98-107)
[2018-07-24] MEDS ORDERED: ENOXAPARIN 120MG/0.8ML SYR SUBCUT ONE (11:15)
[2018-07-24 13:00] VITALS: BP 150/100
[2018-07-24] MEDS ORDERED: CLONIDINE 0.1MG TABLET PO PRN (13:30)
[2018-07-24] MEDS: CLOPIDOGREL 75MG TABLET PO SCH (14:22)
[2018-07-24] MEDS: HYDROCODONE/ACETAMINOPHEN 5/325MG TABLET PO PRN ×2 (14:23→20:43)
[2018-07-24] MEDS: FUROSEMIDE 40MG/4ML VIAL IVP SCH (17:35)
[2018-07-24 20:00] VITALS: BP 143/95
[2018-07-24] MEDS: ATORVASTATIN CALCIUM 40MG TABLET PO SCH (20:32)
[2018-07-24] MEDS: CARVEDILOL 6.25 MG TABLET PO SCH (20:32)
[2018-07-24] MEDS ORDERED: CARVEDILOL 12.5MG TABLET PO SCH (21:00)
[2018-07-24] MEDS ORDERED: ATORVASTATIN CALCIUM 40MG TABLET PO SCH (21:00)
[2018-07-25] VITALS: BP 149/93
[2018-07-25 04:00] VITALS: BP 138/83
[2018-07-25] MEDS: HYDROCODONE/ACETAMINOPHEN 5/325MG TABLET PO PRN ×3 (04:13→17:32)
[2018-07-25] MEDS: OMEPRAZOLE 20MG CAPSULE EXTENDED RELEASE PO SCH (06:36)
[2018-07-25 08:00] VITALS: BP 144/93
[2018-07-25] MEDS ORDERED: LISINOPRIL 5MG TABLET PO SCH (09:00)
[2018-07-25] MEDS ORDERED: CLOPIDOGREL 75MG TABLET PO SCH (09:00)
[2018-07-25] MEDS: CLOPIDOGREL 75MG TABLET PO SCH (10:04)
[2018-07-25] MEDS: FUROSEMIDE 40MG/4ML VIAL IVP SCH ×2 (10:04→17:11)
[2018-07-25] MEDS: ASPIRIN 81MG EC TABLET PO SCH (10:04)
[2018-07-25] MEDS: CARVEDILOL 6.25 MG TABLET PO SCH ×2 (10:06→20:54)
[2018-07-25] MEDS: ENOXAPARIN 30MG/0.3ML SYR SUBCUT SCH ×2 (10:06→20:46)
[2018-07-25] MEDS ORDERED: NITROGLYCERIN 0.4MG TABLET SL SL PRN (11:30)
[2018-07-25 12:00] VITALS: BP 122/86
[2018-07-25] MEDS: ALBUTEROL (0.083%) 2.5MG/3ML NEB HHN PRN ×2 (12:20→16:52)
[2018-07-25] MEDS: ISOSORBIDE MONONITRATE 30MG TABLET SR 24HR PO SCH (13:13)
[2018-07-25 16:00] VITALS: BP 103/70
[2018-07-25 16:28] LABS: CHLORIDE 102 mEq/L (98-107)
[2018-07-25 16:34] LABS: LDL CHOLESTEROL 43 mg/dL (5-100)
[2018-07-25 16:38] LABS: HDL CHOLESTEROL 56 mg/dL (40-59)
[2018-07-25] MEDS: POTASSIUM BICARB/CIT ACID 25 MEQ TABLET.EFF PO SCH (17:12)
[2018-07-25 20:00] VITALS: BP 99/80
[2018-07-25] MEDS: ATORVASTATIN CALCIUM 40MG TABLET PO SCH (20:46)
[2018-07-26] VITALS (7 sets, daily range): BP systolic 97–118; BP diastolic 53–92
[2018-07-26] MEDS: HYDROCODONE/ACETAMINOPHEN 5/325MG TABLET PO PRN ×3 (01:58→16:47)
[2018-07-26 07:31] LABS: CHLORIDE 100 mEq/L (98-107)
[2018-07-26] MEDS: LISINOPRIL 5MG TABLET PO SCH (09:00)
[2018-07-26] MEDS: ISOSORBIDE MONONITRATE 30MG TABLET SR 24HR PO SCH (09:00)
[2018-07-26] MEDS: CARVEDILOL 6.25 MG TABLET PO SCH ×2 (09:00→20:48)
[2018-07-26] MEDS: ASPIRIN 81MG EC TABLET PO SCH (10:12)
[2018-07-26] MEDS: OMEPRAZOLE 20MG CAPSULE EXTENDED RELEASE PO SCH (10:21)
[2018-07-26] MEDS: FUROSEMIDE 40MG/4ML VIAL IVP SCH ×2 (10:21→16:54)
[2018-07-26] MEDS: CLOPIDOGREL 75MG TABLET PO SCH (10:21)
[2018-07-26] MEDS: POTASSIUM BICARB/CIT ACID 25 MEQ TABLET.EFF PO SCH ×2 (10:21→16:56)
[2018-07-26] MEDS: ENOXAPARIN 30MG/0.3ML SYR SUBCUT SCH ×2 (10:21→20:48)
[2018-07-26] MEDS: ALBUTEROL (0.083%) 2.5MG/3ML NEB HHN PRN (15:17)
[2018-07-26] MEDS: ATORVASTATIN CALCIUM 40MG TABLET PO SCH (20:48)
[2018-07-26] MEDS: FAMOTIDINE 20MG TABLET PO SCH (21:00)
[2018-07-27] VITALS: BP 117/77
[2018-07-27] MEDS: HYDROCODONE/ACETAMINOPHEN 5/325MG TABLET PO PRN ×2 (02:51→09:03)
[2018-07-27 03:56] VITALS: BP 142/88
[2018-07-27 08:00] VITALS: BP 107/80
[2018-07-27] MEDS: ENOXAPARIN 30MG/0.3ML SYR SUBCUT SCH (08:48)
[2018-07-27] MEDS: CLOPIDOGREL 75MG TABLET PO SCH (08:54)
[2018-07-27] MEDS: ISOSORBIDE MONONITRATE 30MG TABLET SR 24HR PO SCH (08:54)
[2018-07-27] MEDS: FAMOTIDINE 20MG TABLET PO SCH (08:54)
[2018-07-27] MEDS: CARVEDILOL 6.25 MG TABLET PO SCH (08:54)
[2018-07-27] MEDS: ASPIRIN 81MG EC TABLET PO SCH (08:55)
[2018-07-27] MEDS: LISINOPRIL 5MG TABLET PO SCH (08:55)
[2018-07-27] MEDS: FUROSEMIDE 40MG/4ML VIAL IVP SCH (08:55)
[2018-07-27] MEDS: POTASSIUM BICARB/CIT ACID 25 MEQ TABLET.EFF PO SCH (08:55)
[2018-07-27] MEDS: ATORVASTATIN CALCIUM 40MG TABLET PO SCH (08:55)
[2018-07-27] MEDS ORDERED: POTA20TA82 MT (09:16)
[2018-07-27] MEDS ORDERED: HYDR-4001 PO (09:17)
[2018-07-27 09:18] VITALS: BP 108/80
== END 2018-07-27 11:27 | disposition home or self-care (01) | DRG 194 ==
LOC: ER 07:43 → 6WST 11:04 → EDBEDREQTM 11:07 → EDBEDREQ 11:07 → ENRESERV 11:53 → 6WST 13:14
PROVIDERS: ADMIT Internal Medicine Critical Care Medicine; ATTEND Internal Medicine Critical Care Medicine
PROC: 4B02XTZ Measurement of Cardiac Defibrillator, External Approach (ICD-10-PCS; principal; 2018-07-24)
DX: I11.0 Hypertensive heart disease with heart failure (principal); I25.110 Atherosclerotic heart disease of native coronary artery with unstable angina pectoris; I25.5 Ischemic cardiomyopathy; E78.5 Hyperlipidemia, unspecified; G89.29 Other chronic pain; E78.00 Pure hypercholesterolemia, unspecified; I50.9 Heart failure, unspecified; F41.9 Anxiety disorder, unspecified; F31.9 Bipolar disorder, unspecified; J44.9 Chronic obstructive pulmonary disease, unspecified; Z79.82 Long term (current) use of aspirin; Z79.899 Other long term (current) drug therapy; Z95.810 Presence of automatic (implantable) cardiac defibrillator; Z95.5 Presence of coronary angioplasty implant and graft; Z87.891 Personal history of nicotine dependence; Z79.02 Long term (current) use of antithrombotics/antiplatelets; Z91.19 Patient's noncompliance with other medical treatment and regimen; Z91.018 Allergy to other foods; Z82.49 Family history of ischemic heart disease and other diseases of the circulatory system
CPT/HCPCS: 36415; 71045; 80048; 80061; 83880; 84484; 93005; 94640; 96374; 99285; J1650; J1940; J7611

== ENCOUNTER 2018-07-29 09:06 | Emergency (ER) | payer MEDICAID ==
[~2018-07-29] VITALS: Ht 170.2 cm; Wt 103.0 kg
[~2018-07-29 09:06] MED LIST changes: +HYDR-4001 PO; +POTA20TA82 MT
[2018-07-29 09:15] VITALS: BP 143/93
[2018-07-29] MEDS ORDERED: IPRATROPIUM BROMIDE (0.02%) 0.5MG/2.5ML NEB HHN STA (09:44)
[2018-07-29] MEDS ORDERED: PREDNISONE 20MG TABLET PO STA (09:44)
[2018-07-29] MEDS ORDERED: ALBUTEROL (0.083%) 2.5MG/3ML NEB HHN STA (09:44)
[2018-07-29 10:08] LABS: BASOPHILS % 0.6 % (0.0-2.0); EOSINOPHILS % 0.8 % (0.0-5.0); HEMATOCRIT. 52.9 % (42.0-52.0); HEMOGLOBIN. 17.3 g/dL (14.0-18.0); LYMPHOCYTES % 17.5 % (20.0-50.0); MEAN CORPUSCULAR HEMOGLOBIN 28.4 pg (28.0-32.0); MEAN CORPUSCULAR VOLUME 86.8 fL (80.0-94.0); MEAN PLATELET VOLUME 9.3 fl (7.4-10.4); MONOCYTES % 9.9 % (2.0-8.0); NEUTROPHILS % 71.2 % (40.0-76.0); PLATELET 170 x1000/uL (130-400)
[2018-07-29 10:15] LABS: CHLORIDE 102 mEq/L (98-107)
== END 2018-07-29 11:33 | disposition left against medical advice (07) ==
LOC: ER 09:06
DX: J44.1 Chronic obstructive pulmonary disease with (acute) exacerbation (principal); Z87.891 Personal history of nicotine dependence
CPT/HCPCS: 36415; 71045; 80053; 83880; 84484; 85025; 93005; 94640; 99284; J7512; J7611

== ENCOUNTER 2018-08-03 18:27 | Emergency (ER) | payer MEDICAID ==
[~2018-08-03] VITALS: Ht 170.2 cm; Wt 104.0 kg
[2018-08-03] MEDS ORDERED: ALBUTEROL (0.083%) 2.5MG/3ML NEB HHN STA (23:21)
[2018-08-03] MEDS ORDERED: IPRATROPIUM BROMIDE (0.02%) 0.5MG/2.5ML NEB HHN STA (23:21)
[2018-08-03] MEDS ORDERED: MORPHINE SULFATE 4 MG/ML CPJ (NOT FOR IM USE) IV STA (23:21)
[2018-08-03] MEDS ORDERED: ONDANSETRON HCL 4MG/2ML INJ IV STA (23:21)
[2018-08-03] MEDS ORDERED: NITROGLYCERIN 0.4MG TABLET SL SL PRN (23:30)
[2018-08-03] MEDS ORDERED: FUROSEMIDE 40MG/4ML VIAL IV ONE (23:30)
[2018-08-03 23:55] LABS: BASOPHILS % 0.6 % (0.0-2.0); EOSINOPHILS % 2.3 % (0.0-5.0); HEMOGLOBIN. 13.2 g/dL (14.0-18.0); LYMPHOCYTES % 28.5 % (20.0-50.0); MEAN CORPUSCULAR HEMOGLOBIN 28.7 pg (28.0-32.0); MEAN CORPUSCULAR VOLUME 87.3 fL (80.0-94.0); NEUTROPHILS % 56.6 % (40.0-76.0); PLATELET 142 x1000/uL (130-400); RED BLOOD CELL COUNT 4.58 mill/uL (4.7-6.1); RED CELL DISTRIBUTION WIDTH 17.7 % (11.6-14.6)
[2018-08-03 23:56] LABS: CHLORIDE 108 mEq/L (98-107)
[2018-08-04] MEDS ORDERED: RISPERIDONE 1MG TABLET PO STA (08:09)
[2018-08-04 11:24] VITALS: BP 157/87
== END 2018-08-04 11:25 | disposition home or self-care (01) ==
LOC: ER 18:27
DX: I11.0 Hypertensive heart disease with heart failure (principal); I50.9 Heart failure, unspecified; F17.210 Nicotine dependence, cigarettes, uncomplicated
CPT/HCPCS: 36415; 71045; 80053; 83880; 84484; 85025; 93005; 94640; 96374; 96375; 99284; J2270; J2405; J7611; Z7610; J1940

== ENCOUNTER 2018-09-01 09:59 | Emergency (ER) | payer MEDICAID ==
[~2018-09-01] VITALS: Ht 170.2 cm; Wt 104.0 kg
[2018-09-01] MEDS ORDERED: RISPERIDONE 1MG TABLET PO STA (10:27)
[2018-09-01] MEDS ORDERED: LORAZEPAM 1MG TABLET PO ONE (10:30)
[2018-09-01 10:47] LABS: BASOPHILS % 0.7 % (0.0-2.0); EOSINOPHILS % 0.9 % (0.0-5.0); HEMATOCRIT. 42.6 % (42.0-52.0); HEMOGLOBIN. 13.9 g/dL (14.0-18.0); LYMPHOCYTES % 13.5 % (20.0-50.0); MEAN CORPUSCULAR HEMOGLOBIN 28.7 pg (28.0-32.0); MEAN CORPUSCULAR VOLUME 87.9 fL (80.0-94.0); MEAN PLATELET VOLUME 9.3 fl (7.4-10.4); NEUTROPHILS % 75.9 % (40.0-76.0); PLATELET 160 x1000/uL (130-400); RED BLOOD CELL COUNT 4.85 mill/uL (4.7-6.1); RED CELL DISTRIBUTION WIDTH 17.5 % (11.6-14.6)
[2018-09-01 10:54] LABS: CHLORIDE 110 mEq/L (98-107)
[2018-09-01 11:00] LABS: ETHANOL BLOOD < 10 mg/dL
[2018-09-01 11:15] LABS: CLARITY URINE CLEAR (CLEAR); COLOR URINE DARK YELLOW (YELLOW); KETONES URINE NEGATIVE (NEGATIVE); LEUKOCYTE ESTERASE URINE NEGATIVE (NEGATIVE); NITRITE URINE NEGATIVE (NEGATIVE); OCCULT BLOOD URINE NEGATIVE (NEGATIVE); PROTEIN URINE TRACE (NEGATIVE); SPECIFIC GRAVITY URINE 1.033 (1.005-1.030); UROBILINOGEN URINE 0.2 E.U./dL (0.2-1.0)
[2018-09-01 11:29] LABS: *AMPHETAMINES SCREEN URINE NEGATIVE (NEGATIVE); *BARBITURATES SCREEN URINE NEGATIVE (NEGATIVE); *BENZODIAZEPINES SCREEN URINE NEGATIVE (NEGATIVE); *COCAINE SCREEN URINE PRESUMTIVE POSITIVE (NEGATIVE); METHADONE URINE SCREEN NEGATIVE (NEGATIVE); OPIATES URINE SCREEN NEGATIVE (NEGATIVE)
[2018-09-01 11:30] LABS: CANNABINOID URINE SCREEN NEGATIVE (NEGATIVE); PHENCYCLIDINE URINE SCREEN PRESUMTIVE POSITIVE (NEGATIVE)
[2018-09-01] MEDS ORDERED: CEPHALEXIN 250MG CAPSULE PO ONE (17:00)
[2018-09-01] MEDS ORDERED: SULFAMETHOXAZOLE/TRIMETHOPRIM 800/160MG TABLET PO ONE (17:00)
[2018-09-01] MEDS ORDERED: HYDROCODONE/ACETAMINOPHEN 5/325MG TABLET PO ONE (17:00)
[2018-09-01] MEDS ORDERED: ACETAMINOPHEN 325MG TABLET PO ONE (21:15)
[2018-09-01] MEDS: RISPERIDONE 1MG TABLET PO SCH (21:56)
[2018-09-02] MEDS: CEPHALEXIN 250MG CAPSULE PO SCH ×3 (00:15→13:28)
[2018-09-02 03:57] VITALS: BP 145/12
[2018-09-02] MEDS: RISPERIDONE 1MG TABLET PO SCH (09:00)
[2018-09-02] MEDS ORDERED: SULFAMETHOXAZOLE/TRIMETHOPRIM 400/80MG TAB PO SCH (09:00)
== END 2018-09-02 14:49 | disposition home or self-care (01) ==
LOC: ER 09:59
DX: R45.851 Suicidal ideations (principal); R44.0 Auditory hallucinations; L03.115 Cellulitis of right lower limb; M25.512 Pain in left shoulder; F19.10 Other psychoactive substance abuse, uncomplicated; E11.9 Type 2 diabetes mellitus without complications; I10 Essential (primary) hypertension
CPT/HCPCS: 36415; 73030; 80305; 80320; 82962; 99284; G0480

== ENCOUNTER 2018-11-15 11:05 | Inpatient (IN) | payer MEDICAID ==
[~2018-11-15] VITALS: Ht 170.2 cm; Wt 104.3 kg
[2018-11-15] MEDS ORDERED: NITROGLYCERIN OINT 1GM/INCH UDPKT TD ONE (11:30)
[2018-11-15 11:41] LABS: CHLORIDE 106 mEq/L (98-107); INR 1.1; PROTHROMBIN TIME 10.9 sec (9.6-11.0)
[2018-11-15 11:44] LABS: BASOPHILS % 0.2 % (0.0-2.0); EOSINOPHILS % 0.9 % (0.0-5.0); HEMOGLOBIN. 11.6 g/dL (14.0-18.0); LYMPHOCYTES % 21.5 % (20.0-50.0); MEAN CORPUSCULAR HEMOGLOBIN 27.4 pg (28.0-32.0); MEAN CORPUSCULAR VOLUME 82.4 fL (80.0-94.0); MEAN PLATELET VOLUME 8.2 fl (7.4-10.4); NEUTROPHILS % 71.4 % (40.0-76.0); PLATELET 433 x1000/uL (130-400); RED BLOOD CELL COUNT 4.25 mill/uL (4.7-6.1); RED CELL DISTRIBUTION WIDTH 14.9 % (11.6-14.6)
[2018-11-15 11:50] LABS: ETHANOL BLOOD < 10 mg/dL
[2018-11-15] MEDS ORDERED: POTASSIUM CHLORIDE 20MEQ TABLET SR PO ONE (12:00)
[2018-11-15] MEDS ORDERED: ACETAMINOPHEN 325MG TABLET PO ONE (12:45)
[2018-11-15 15:17] LABS: *AMPHETAMINES SCREEN URINE NEGATIVE (NEGATIVE)
[2018-11-15 15:18] LABS: *BARBITURATES SCREEN URINE NEGATIVE (NEGATIVE); *BENZODIAZEPINES SCREEN URINE NEGATIVE (NEGATIVE); *COCAINE SCREEN URINE NEGATIVE (NEGATIVE); CANNABINOID URINE SCREEN PRESUMTIVE POSITIVE (NEGATIVE); METHADONE URINE SCREEN NEGATIVE (NEGATIVE); OPIATES URINE SCREEN NEGATIVE (NEGATIVE); PHENCYCLIDINE URINE SCREEN NEGATIVE (NEGATIVE)
[2018-11-15 16:14] VITALS: BP 101/78
[2018-11-15] MEDS ORDERED: CLONIDINE 0.1MG TABLET PO PRN (18:15)
[2018-11-15] MEDS ORDERED: IPRATROPIUM/ALBUTEROL 0.5-3(2.5)MG/3ML NEB HHN PRN (18:15)
[2018-11-15] MEDS ORDERED: ACETAMINOPHEN 325MG TABLET PO PRN (18:15)
[2018-11-15] MEDS ORDERED: DOCUSATE SODIUM 100MG CAPSULE PO PRN (18:15)
[2018-11-15] MEDS ORDERED: ENOXAPARIN 40MG/0.4ML SYR SUBCUT SCH (18:15)
[2018-11-15] MEDS: ISOSORBIDE MONONITRATE 30MG TABLET SR 24HR PO SCH (18:30)
[2018-11-15] MEDS: LISINOPRIL 5MG TABLET PO SCH (18:30)
[2018-11-15] MEDS: CLOPIDOGREL 75MG TABLET PO SCH (20:55)
[2018-11-15] MEDS: OMEPRAZOLE 20MG CAPSULE EXTENDED RELEASE PO SCH (20:55)
[2018-11-15] MEDS: FUROSEMIDE 40MG/4ML VIAL IVP SCH (20:55)
[2018-11-15] MEDS: RISPERIDONE 1MG TABLET PO SCH (20:56)
[2018-11-15] MEDS: LORAZEPAM 0.5MG TABLET PO PRN (20:56)
[2018-11-15] MEDS: ATORVASTATIN CALCIUM 40MG TABLET PO SCH (20:56)
[2018-11-15] MEDS: ASPIRIN 81MG TABLET PO SCH (20:58)
[2018-11-15] MEDS: TRAMADOL 50MG TABLET PO PRN (20:58)
[2018-11-15] MEDS: POTASSIUM CHLORIDE 20MEQ TABLET SR PO SCH (20:58)
[2018-11-15] MEDS: ENOXAPARIN 30MG/0.3ML SYR SUBCUT SCH (21:01)
[2018-11-15] MEDS: CARVEDILOL 12.5MG TABLET PO SCH (21:02)
[2018-11-15] MEDS: IPRATROPIUM/ALBUTEROL 0.5-3(2.5)MG/3ML NEB HHN SCH (21:15)
[2018-11-16] MEDS: IPRATROPIUM/ALBUTEROL 0.5-3(2.5)MG/3ML NEB HHN SCH ×7 (04:12→23:53)
[2018-11-16] MEDS: OMEPRAZOLE 20MG CAPSULE EXTENDED RELEASE PO SCH ×2 (06:15→21:37)
[2018-11-16 08:00] VITALS: BP 129/79
[2018-11-16] MEDS: ENOXAPARIN 30MG/0.3ML SYR SUBCUT SCH ×2 (08:33→21:39)
[2018-11-16] MEDS: CLOPIDOGREL 75MG TABLET PO SCH (08:33)
[2018-11-16] MEDS: TRAMADOL 50MG TABLET PO PRN ×2 (08:34→18:11)
[2018-11-16] MEDS: POTASSIUM CHLORIDE 20MEQ TABLET SR PO SCH (08:34)
[2018-11-16] MEDS: ASPIRIN 81MG TABLET PO SCH (08:34)
[2018-11-16] MEDS: FUROSEMIDE 40MG/4ML VIAL IVP SCH (08:35)
[2018-11-16] MEDS: RISPERIDONE 1MG TABLET PO SCH ×2 (08:35→21:38)
[2018-11-16] MEDS: CARVEDILOL 12.5MG TABLET PO SCH ×2 (08:35→21:38)
[2018-11-16] MEDS: LISINOPRIL 5MG TABLET PO SCH (09:00)
[2018-11-16] MEDS: ISOSORBIDE MONONITRATE 30MG TABLET SR 24HR PO SCH (09:00)
[2018-11-16 09:37] LABS: BASOPHILS % 0.6 % (0.0-2.0); EOSINOPHILS % 2.8 % (0.0-5.0); HEMATOCRIT. 46.6 % (42.0-52.0); HEMOGLOBIN. 15.2 g/dL (14.0-18.0); LYMPHOCYTES % 15.3 % (20.0-50.0); MEAN CORPUSCULAR HEMOGLOBIN 29.1 pg (28.0-32.0); MEAN CORPUSCULAR VOLUME 89.4 fL (80.0-94.0); MEAN PLATELET VOLUME 9.7 fl (7.4-10.4); MONOCYTES % 7.9 % (2.0-8.0); NEUTROPHILS % 73.4 % (40.0-76.0); PLATELET 170 x1000/uL (130-400); RED BLOOD CELL COUNT 5.21 mill/uL (4.7-6.1); RED CELL DISTRIBUTION WIDTH 16.2 % (11.6-14.6)
[2018-11-16 09:43] LABS: CHLORIDE 106 mEq/L (98-107)
[2018-11-16 09:53] LABS: LDL CHOLESTEROL 65 mg/dL (5-100)
[2018-11-16 09:55] LABS: HDL CHOLESTEROL 51 mg/dL (40-59)
[2018-11-16 12:00] VITALS: BP 106/82
[2018-11-16] MEDS: SODIUM CHLORIDE 0.9% INJ 3ML FLUSH IVF SCH ×2 (14:24→21:38)
[2018-11-16] MEDS: LORAZEPAM 0.5MG TABLET PO PRN ×2 (15:42→21:46)
[2018-11-16 16:00] VITALS: BP 140/71
[2018-11-16 20:00] VITALS: BP 131/82
[2018-11-16] MEDS: ATORVASTATIN CALCIUM 40MG TABLET PO SCH (21:37)
[2018-11-17] MEDS: IPRATROPIUM/ALBUTEROL 0.5-3(2.5)MG/3ML NEB HHN SCH (04:00)
[2018-11-17] MEDS: OMEPRAZOLE 20MG CAPSULE EXTENDED RELEASE PO SCH (05:56)
[2018-11-17] MEDS: SODIUM CHLORIDE 0.9% INJ 3ML FLUSH IVF SCH (05:56)
[2018-11-17 07:31] VITALS: BP 97/46
[2018-11-17] MEDS: TRAMADOL 50MG TABLET PO PRN (07:39)
[2018-11-17] MEDS: ASPIRIN 81MG TABLET PO SCH (08:20)
[2018-11-17] MEDS: ISOSORBIDE MONONITRATE 30MG TABLET SR 24HR PO SCH (08:20)
[2018-11-17] MEDS: CARVEDILOL 12.5MG TABLET PO SCH (08:20)
[2018-11-17] MEDS: FUROSEMIDE 40MG/4ML VIAL IVP SCH (08:20)
[2018-11-17] MEDS: POTASSIUM CHLORIDE 20MEQ TABLET SR PO SCH (08:20)
[2018-11-17] MEDS: RISPERIDONE 1MG TABLET PO SCH (08:21)
[2018-11-17] MEDS: CLOPIDOGREL 75MG TABLET PO SCH (08:21)
[2018-11-17] MEDS: ENOXAPARIN 30MG/0.3ML SYR SUBCUT SCH (08:21)
[2018-11-17] MEDS: LISINOPRIL 5MG TABLET PO SCH (08:21)
[2018-12-18] MEDS ORDERED: LISINOPRIL 5MG TABLET PO SCH (23:15)
[2018-12-19] MEDS ORDERED: ATORVASTATIN CALCIUM 20MG TABLET PO SCH
[2018-12-19] MEDS ORDERED: FUROSEMIDE 40MG/4ML VIAL IVP SCH (07:15)
[2018-12-19] MEDS ORDERED: CLOPIDOGREL 75MG TABLET PO SCH (09:00)
[2018-12-19] MEDS ORDERED: ISOSORBIDE MONONITRATE 30MG TABLET SR 24HR PO SCH (09:00)
[2018-12-19] MEDS ORDERED: CARVEDILOL 12.5MG TABLET PO SCH (09:00)
== END 2018-11-17 11:05 | disposition home or self-care (01) | DRG 198 ==
LOC: ER 11:05 → 8WST 12:22 → EDBEDREQ 12:31 → ENRESERV 14:29
PROVIDERS: ADMIT Ophthalmology; ATTEND Ophthalmology
DX: R07.89 Other chest pain (principal); I25.10 Atherosclerotic heart disease of native coronary artery without angina pectoris; I11.0 Hypertensive heart disease with heart failure; I42.0 Dilated cardiomyopathy; F20.9 Schizophrenia, unspecified; I50.22 Chronic systolic (congestive) heart failure; I25.2 Old myocardial infarction; J44.1 Chronic obstructive pulmonary disease with (acute) exacerbation; D64.9 Anemia, unspecified; E78.00 Pure hypercholesterolemia, unspecified; F41.9 Anxiety disorder, unspecified; Z99.81 Dependence on supplemental oxygen; E78.5 Hyperlipidemia, unspecified; F17.210 Nicotine dependence, cigarettes, uncomplicated; F32.9 Major depressive disorder, single episode, unspecified; I25.5 Ischemic cardiomyopathy; I50.20 Unspecified systolic (congestive) heart failure; Z91.14 Patient's other noncompliance with medication regimen; Z95.5 Presence of coronary angioplasty implant and graft; Z88.9 Allergy status to unspecified drugs, medicaments and biological substances; Z95.810 Presence of automatic (implantable) cardiac defibrillator; E66.9 Obesity, unspecified; Z68.36 Body mass index [BMI] 36.0-36.9, adult
CPT/HCPCS: 36415; 71045; 80048; 80061; 80305; 80320; 83880; 84443; 84484; 93005; 94640; 99285; J1650; J1940; J7620; G0480

== ENCOUNTER 2018-12-18 14:56 | Inpatient (IN) | payer MEDICAID ==
[~2018-12-18] VITALS: Ht 170.2 cm; Wt 61.0 kg
[2018-12-18] MEDS ORDERED: FUROSEMIDE 40MG/4ML VIAL IV ONE (17:30)
[2018-12-18] MEDS ORDERED: ASPIRIN 81MG TABLET PO ONE (17:30)
[2018-12-18 18:12] LABS: BASOPHILS % 0.6 % (0.0-2.0); EOSINOPHILS % 1.4 % (0.0-5.0); HEMOGLOBIN. 13.9 g/dL (14.0-18.0); LYMPHOCYTES % 18.1 % (20.0-50.0); MEAN CORPUSCULAR HEMOGLOBIN 28.2 pg (28.0-32.0); MEAN CORPUSCULAR VOLUME 87.2 fL (80.0-94.0); MEAN PLATELET VOLUME 9.3 fl (7.4-10.4); MONOCYTES % 7.9 % (2.0-8.0); PLATELET 174 x1000/uL (130-400); RED BLOOD CELL COUNT 4.93 mill/uL (4.7-6.1); RED CELL DISTRIBUTION WIDTH 16.4 % (11.6-14.6)
[2018-12-18 18:20] LABS: CHLORIDE 109 mEq/L (98-107)
[2018-12-18] MEDS ORDERED: LORAZEPAM 0.5MG TABLET PO ONE (20:45)
[2018-12-18 22:40] VITALS: BP 126/81
[2018-12-18] MEDS ORDERED: NITROGLYCERIN 0.4MG TABLET SL SL PRN (23:30)
[2018-12-19] MEDS: LORAZEPAM 0.5MG TABLET PO PRN ×3 (01:32→20:40)
[2018-12-19] MEDS: TRAMADOL 50MG TABLET PO PRN ×2 (01:32→20:40)
[2018-12-19 01:58] LABS: *AMPHETAMINES SCREEN URINE NEGATIVE (NEGATIVE); *BARBITURATES SCREEN URINE NEGATIVE (NEGATIVE); *BENZODIAZEPINES SCREEN URINE NEGATIVE (NEGATIVE); *COCAINE SCREEN URINE PRESUMTIVE POSITIVE (NEGATIVE); METHADONE URINE SCREEN NEGATIVE (NEGATIVE); OPIATES URINE SCREEN NEGATIVE (NEGATIVE)
[2018-12-19 01:59] LABS: CANNABINOID URINE SCREEN NEGATIVE (NEGATIVE); PHENCYCLIDINE URINE SCREEN PRESUMTIVE POSITIVE (NEGATIVE)
[2018-12-19 04:00] VITALS: BP 137/87
[2018-12-19] MEDS: FUROSEMIDE 40MG/4ML VIAL IVP SCH ×3 (07:15→16:32)
[2018-12-19 07:19] LABS: CHLORIDE 103 mEq/L (98-107)
[2018-12-19 07:28] LABS: LDL CHOLESTEROL 72 mg/dL (5-100)
[2018-12-19 07:29] LABS: HDL CHOLESTEROL 64 mg/dL (40-59)
[2018-12-19 07:31] LABS: CREATINE KINASE MB FRACTION 2.5 ng/mL (0.5-3.6)
[2018-12-19 08:00] VITALS: BP 130/99
[2018-12-19] MEDS: CARVEDILOL 12.5MG TABLET PO SCH ×2 (08:47→20:41)
[2018-12-19] MEDS: ASPIRIN 81MG EC TABLET PO SCH (08:47)
[2018-12-19] MEDS: ISOSORBIDE MONONITRATE 30MG TABLET SR 24HR PO SCH (08:48)
[2018-12-19] MEDS ORDERED: LISINOPRIL 5MG TABLET PO SCH (09:00)
[2018-12-19] MEDS: AMLODIPINE 5MG TABLET PO SCH ×2 (11:56→20:41)
[2018-12-19 12:00] VITALS: BP 108/79
[2018-12-19] MEDS ORDERED: POTASSIUM CHLORIDE 20MEQ TABLET SR PO SCH (12:00)
[2018-12-19] MEDS ORDERED: ALBUTEROL (0.083%) 2.5MG/3ML NEB HHN PRN (13:00)
[2018-12-19] MEDS ORDERED: ALBUTEROL 6.7GM HFA INHALER ORI PRN (13:00)
[2018-12-19 16:00] VITALS: BP 106/69
[2018-12-19] MEDS: POTASSIUM CHLORIDE 20MEQ TABLET SR PO SCH (16:33)
[2018-12-19 20:00] VITALS: BP 98/54
[2018-12-20] VITALS: BP 118/58
[2018-12-20 04:00] VITALS: BP 155/76
[2018-12-20 07:31] LABS: CHLORIDE 105 mEq/L (98-107)
[2018-12-20 08:00] VITALS: BP 130/82
[2018-12-20] MEDS: AMLODIPINE 5MG TABLET PO SCH ×2 (08:33→20:14)
[2018-12-20] MEDS: CARVEDILOL 12.5MG TABLET PO SCH ×2 (08:33→20:13)
[2018-12-20] MEDS: ASPIRIN 81MG EC TABLET PO SCH (08:33)
[2018-12-20] MEDS: ISOSORBIDE MONONITRATE 30MG TABLET SR 24HR PO SCH (08:33)
[2018-12-20] MEDS: POTASSIUM CHLORIDE 20MEQ TABLET SR PO SCH ×2 (08:34→17:41)
[2018-12-20] MEDS ORDERED: CLOPIDOGREL 75MG TABLET PO SCH (09:00)
[2018-12-20] MEDS ORDERED: LISINOPRIL 5MG TABLET PO SCH (09:00)
[2018-12-20] MEDS ORDERED: ALBUTEROL (0.083%) 2.5MG/3ML NEB HHN PRN (11:00)
[2018-12-20 12:00] VITALS: BP 103/69
[2018-12-20] MEDS: TRAMADOL 50MG TABLET PO PRN ×2 (12:58→20:14)
[2018-12-20] MEDS: LORAZEPAM 0.5MG TABLET PO PRN (14:25)
[2018-12-20 16:00] VITALS: BP 91/61
[2018-12-20 20:31] VITALS: BP 129/76
[2018-12-21 07:57] VITALS: BP 129/88
[2018-12-21 08:00] VITALS: BP 135/95
[2018-12-21] MEDS ORDERED: FUROSEMIDE 40MG TABLET PO SCH (09:00)
== END 2018-12-21 09:10 | disposition home or self-care (01) | DRG 194 ==
LOC: ER 15:14 → 6WST 20:37 → EDBEDREQTM 20:38 → EDBEDREQ 20:38 → ENRESERV 22:04
PROVIDERS: ADMIT Internal Medicine Critical Care Medicine; ATTEND Internal Medicine Critical Care Medicine
DX: I11.0 Hypertensive heart disease with heart failure (principal); I42.0 Dilated cardiomyopathy; F20.9 Schizophrenia, unspecified; Z99.81 Dependence on supplemental oxygen; I50.23 Acute on chronic systolic (congestive) heart failure; K21.9 Gastro-esophageal reflux disease without esophagitis; F41.9 Anxiety disorder, unspecified; F32.9 Major depressive disorder, single episode, unspecified; I25.5 Ischemic cardiomyopathy; I25.10 Atherosclerotic heart disease of native coronary artery without angina pectoris; E11.9 Type 2 diabetes mellitus without complications; F15.10 Other stimulant abuse, uncomplicated; F14.10 Cocaine abuse, uncomplicated; E78.5 Hyperlipidemia, unspecified; J44.9 Chronic obstructive pulmonary disease, unspecified; G89.29 Other chronic pain; Z87.891 Personal history of nicotine dependence; Z91.11 Patient's noncompliance with dietary regimen; Z95.5 Presence of coronary angioplasty implant and graft; Z95.810 Presence of automatic (implantable) cardiac defibrillator; I25.2 Old myocardial infarction
CPT/HCPCS: 36415; 71045; 80048; 80061; 80305; 82553; 83880; 84484; 93005; 94640; 96374; 99285; J1940; J7611

== ENCOUNTER 2019-01-02 05:02 | Inpatient (IN) | payer MEDICAID ==
[~2019-01-02] VITALS: Ht 170.2 cm; Wt 99.1 kg
[2019-01-02] MEDS ORDERED: ASPIRIN 81MG TABLET PO ONE (05:15)
[2019-01-02 05:52] LABS: BASOPHILS % 0.5 % (0.0-2.0); CHLORIDE 107 mEq/L (98-107); EOSINOPHILS % 2.1 % (0.0-5.0); HEMOGLOBIN. 15.8 g/dL (14.0-18.0); LYMPHOCYTES % 25.3 % (20.0-50.0); MEAN CORPUSCULAR HEMOGLOBIN 28.6 pg (28.0-32.0); MEAN CORPUSCULAR VOLUME 86.8 fL (80.0-94.0); MEAN PLATELET VOLUME 9.1 fl (7.4-10.4); MONOCYTES % 9.2 % (2.0-8.0); NEUTROPHILS % 62.9 % (40.0-76.0); PLATELET 171 x1000/uL (130-400); RED BLOOD CELL COUNT 5.53 mill/uL (4.7-6.1); RED CELL DISTRIBUTION WIDTH 16.5 % (11.6-14.6)
[2019-01-02] MEDS ORDERED: POTASSIUM CHLORIDE 20MEQ TABLET SR PO ONE (06:30)
[2019-01-02] MEDS ORDERED: FUROSEMIDE 20MG/2ML VIAL IVP ONE (07:30)
[2019-01-02] MEDS ORDERED: ONDANSETRON HCL 4MG/2ML INJ IV ONE (07:30)
[2019-01-02] MEDS ORDERED: HYDRALAZINE 20MG/ML VIAL IV ONE (07:30)
[2019-01-02] MEDS ORDERED: MORPHINE SULFATE 4 MG/ML CPJ (NOT FOR IM USE) IV ONE (07:30)
[2019-01-02 08:19] LABS: *AMPHETAMINES SCREEN URINE NEGATIVE (NEGATIVE); *BARBITURATES SCREEN URINE NEGATIVE (NEGATIVE); *BENZODIAZEPINES SCREEN URINE NEGATIVE (NEGATIVE); *COCAINE SCREEN URINE PRESUMTIVE POSITIVE (NEGATIVE)
[2019-01-02 08:20] LABS: CANNABINOID URINE SCREEN NEGATIVE (NEGATIVE); METHADONE URINE SCREEN NEGATIVE (NEGATIVE); OPIATES URINE SCREEN NEGATIVE (NEGATIVE); PHENCYCLIDINE URINE SCREEN PRESUMTIVE POSITIVE (NEGATIVE)
[2019-01-02 09:34] VITALS: BP 123/73
[2019-01-02] MEDS ORDERED: ALPR1TAB2 PO (09:51)
[2019-01-02] MEDS ORDERED: FURO-151 MT (09:51)
[2019-01-02] MEDS ORDERED: CLOP75TA4 MT (09:51)
[2019-01-02] MEDS ORDERED: LISI-604 MT (09:51)
[2019-01-02] MEDS ORDERED: POTA20TA82 MT (09:51)
[2019-01-02] MEDS ORDERED: COR12 MT (09:51)
[2019-01-02] MEDS ORDERED: NITROGLYCERIN 0.4MG TABLET SL SL PRN (11:45)
[2019-01-02] MEDS ORDERED: LORAZEPAM 0.5MG TABLET PO PRN (11:45)
[2019-01-02 11:55] VITALS: BP 164/77
[2019-01-02] MEDS ORDERED: ENOXAPARIN 40MG/0.4ML SYR SUBCUT SCH ×2 (12:00→17:00)
[2019-01-02 16:13] VITALS: BP 163/94
[2019-01-02] MEDS: FUROSEMIDE 40MG/4ML VIAL IVP SCH (17:11)
[2019-01-02] MEDS: POTASSIUM CHLORIDE 20MEQ TABLET SR PO SCH (17:11)
[2019-01-02] MEDS ORDERED: KETOROLAC 30MG/ML VIAL IV PRN (17:15)
[2019-01-02] MEDS ORDERED: OMEPRAZOLE 20MG CAPSULE EXTENDED RELEASE PO NR (17:30)
[2019-01-02] MEDS ORDERED: CLONIDINE 0.1MG TABLET PO PRN (17:30)
[2019-01-02] MEDS: TRAMADOL 50MG TABLET PO PRN (17:44)
[2019-01-02 20:48] VITALS: BP 112/84
[2019-01-02 20:58] LABS: BASOPHILS % 0.6 % (0.0-2.0); EOSINOPHILS % 2.6 % (0.0-5.0); HEMATOCRIT. 46.5 % (42.0-52.0); HEMOGLOBIN. 15.1 g/dL (14.0-18.0); LYMPHOCYTES % 22.2 % (20.0-50.0); MEAN CORPUSCULAR HEMOGLOBIN 28.1 pg (28.0-32.0); MEAN CORPUSCULAR VOLUME 86.5 fL (80.0-94.0); MONOCYTES % 12.8 % (2.0-8.0); NEUTROPHILS % 61.8 % (40.0-76.0); PLATELET 176 x1000/uL (130-400); RED BLOOD CELL COUNT 5.38 mill/uL (4.7-6.1); RED CELL DISTRIBUTION WIDTH 16.8 % (11.6-14.6)
[2019-01-02 21:37] LABS: CHLORIDE 102 mEq/L (98-107)
[2019-01-02 21:45] LABS: PHOSPHORUS 3.8 mg/dL (2.5-4.9)
[2019-01-02] MEDS: CARVEDILOL 12.5MG TABLET PO SCH (21:54)
[2019-01-02] MEDS: OMEPRAZOLE 20MG CAPSULE EXTENDED RELEASE PO SCH (21:54)
[2019-01-03 00:34] VITALS: BP 135/84
[2019-01-03 01:30] LABS: CREATINE KINASE MB FRACTION 2.6 ng/mL (0.5-3.6)
[2019-01-03] MEDS: TRAMADOL 50MG TABLET PO PRN ×3 (02:48→17:02)
[2019-01-03 04:00] VITALS: BP 107/70
[2019-01-03] MEDS: FUROSEMIDE 40MG/4ML VIAL IVP SCH ×3 (06:55→19:54)
[2019-01-03] MEDS: OMEPRAZOLE 20MG CAPSULE EXTENDED RELEASE PO SCH (06:55)
[2019-01-03 07:55] LABS: BASOPHILS % 0.6 % (0.0-2.0); EOSINOPHILS % 2.8 % (0.0-5.0); HEMATOCRIT. 46.9 % (42.0-52.0); HEMOGLOBIN. 15.1 g/dL (14.0-18.0); LYMPHOCYTES % 22.2 % (20.0-50.0); MEAN CORPUSCULAR HEMOGLOBIN 28.2 pg (28.0-32.0); MEAN CORPUSCULAR VOLUME 87.3 fL (80.0-94.0); NEUTROPHILS % 62.4 % (40.0-76.0); PLATELET 170 x1000/uL (130-400); RED BLOOD CELL COUNT 5.37 mill/uL (4.7-6.1); RED CELL DISTRIBUTION WIDTH 16.8 % (11.6-14.6)
[2019-01-03 08:00] VITALS: BP 147/89
[2019-01-03 08:16] LABS: CHLORIDE 104 mEq/L (98-107)
[2019-01-03 08:28] LABS: CREATINE KINASE 74 IU/L (39-308)
[2019-01-03] MEDS: CLOPIDOGREL 75MG TABLET PO SCH (08:52)
[2019-01-03] MEDS: LISINOPRIL 5MG TABLET PO SCH (08:52)
[2019-01-03] MEDS: AMLODIPINE 5MG TABLET PO SCH (08:53)
[2019-01-03] MEDS: ISOSORBIDE MONONITRATE 30MG TABLET SR 24HR PO SCH (08:54)
[2019-01-03] MEDS: POTASSIUM CHLORIDE 20MEQ TABLET SR PO SCH (08:54)
[2019-01-03] MEDS: CARVEDILOL 12.5MG TABLET PO SCH ×2 (08:55→21:00)
[2019-01-03] MEDS: IPRATROPIUM/ALBUTEROL 0.5-3(2.5)MG/3ML NEB HHN SCH ×4 (10:44→20:59)
[2019-01-03 12:00] VITALS: BP 105/68
[2019-01-03 16:00] VITALS: BP 107/70
[2019-01-03 16:45] LABS: CREATINE KINASE 55 IU/L (39-308); CREATINE KINASE MB FRACTION 1.6 ng/mL (0.5-3.6)
[2019-01-03 20:42] VITALS: BP 92/59
[2019-01-03] MEDS: ENOXAPARIN 30MG/0.3ML SYR SUBCUT SCH (21:10)
[2019-01-03] MEDS: FAMOTIDINE 20MG TABLET PO SCH (21:10)
[2019-01-04 00:11] VITALS: BP 95/66
[2019-01-04] MEDS: IPRATROPIUM/ALBUTEROL 0.5-3(2.5)MG/3ML NEB HHN SCH ×6 (00:19→16:07)
[2019-01-04 04:00] VITALS: BP 117/80
[2019-01-04] MEDS: FUROSEMIDE 40MG/4ML VIAL IVP SCH ×2 (06:00→18:01)
[2019-01-04 08:28] VITALS: BP 148/72
[2019-01-04] MEDS: ISOSORBIDE MONONITRATE 30MG TABLET SR 24HR PO SCH (08:59)
[2019-01-04] MEDS: ENOXAPARIN 30MG/0.3ML SYR SUBCUT SCH ×2 (08:59→21:24)
[2019-01-04] MEDS: POTASSIUM CHLORIDE 20MEQ TABLET SR PO SCH (08:59)
[2019-01-04] MEDS: FAMOTIDINE 20MG TABLET PO SCH ×2 (09:00→18:01)
[2019-01-04] MEDS: LISINOPRIL 5MG TABLET PO SCH (09:00)
[2019-01-04] MEDS: AMLODIPINE 5MG TABLET PO SCH (09:01)
[2019-01-04] MEDS: CARVEDILOL 12.5MG TABLET PO SCH ×2 (09:01→21:24)
[2019-01-04] MEDS: CLOPIDOGREL 75MG TABLET PO SCH (09:01)
[2019-01-04 11:58] VITALS: BP 104/77
[2019-01-04 12:17] LABS: CHLORIDE 103 mEq/L (98-107)
[2019-01-04] MEDS: TRAMADOL 50MG TABLET PO PRN (15:01)
[2019-01-04 16:08] VITALS: BP 104/71
[2019-01-04 20:00] VITALS: BP 110/78
[2019-01-05] VITALS: BP 114/67
[2019-01-05] MEDS: IPRATROPIUM/ALBUTEROL 0.5-3(2.5)MG/3ML NEB HHN SCH ×2 (04:43→08:35)
[2019-01-05] MEDS: FUROSEMIDE 40MG/4ML VIAL IVP SCH ×2 (06:38→17:46)
[2019-01-05 08:35] VITALS: BP 148/85
[2019-01-05] MEDS: AMLODIPINE 5MG TABLET PO SCH (09:36)
[2019-01-05] MEDS: FAMOTIDINE 20MG TABLET PO SCH ×2 (09:39→16:10)
[2019-01-05] MEDS: CLOPIDOGREL 75MG TABLET PO SCH (09:39)
[2019-01-05] MEDS: POTASSIUM CHLORIDE 20MEQ TABLET SR PO SCH (09:39)
[2019-01-05] MEDS: ISOSORBIDE MONONITRATE 30MG TABLET SR 24HR PO SCH (09:39)
[2019-01-05] MEDS: CARVEDILOL 12.5MG TABLET PO SCH ×2 (09:39→20:46)
[2019-01-05] MEDS: LISINOPRIL 5MG TABLET PO SCH (09:40)
[2019-01-05] MEDS: ENOXAPARIN 30MG/0.3ML SYR SUBCUT SCH ×2 (09:40→20:46)
[2019-01-05] MEDS ORDERED: ALBUTEROL (0.083%) 2.5MG/3ML NEB HHN PRN (11:45)
[2019-01-05 12:43] VITALS: BP 105/66
[2019-01-05] MEDS: FLUTICASONE/VILANTEROL 200-25 BLST.W.DEV ORI SCH (13:00)
[2019-01-05 16:00] VITALS: BP 102/61
[2019-01-05] MEDS: TRAMADOL 50MG TABLET PO PRN (16:11)
[2019-01-05 20:23] VITALS: BP 123/80
[2019-01-06] MEDS: FUROSEMIDE 40MG/4ML VIAL IVP SCH (06:00)
[2019-01-06 08:00] VITALS: BP 154/94
[2019-01-06] MEDS: CLOPIDOGREL 75MG TABLET PO SCH (09:00)
[2019-01-06] MEDS: LISINOPRIL 5MG TABLET PO SCH (09:00)
[2019-01-06] MEDS: POTASSIUM CHLORIDE 20MEQ TABLET SR PO SCH (09:00)
[2019-01-06] MEDS: FLUTICASONE/VILANTEROL 200-25 BLST.W.DEV ORI SCH (09:00)
[2019-01-06] MEDS: ENOXAPARIN 30MG/0.3ML SYR SUBCUT SCH (09:00)
[2019-01-06] MEDS: AMLODIPINE 5MG TABLET PO SCH (09:00)
[2019-01-06] MEDS: FAMOTIDINE 20MG TABLET PO SCH (09:00)
[2019-01-06] MEDS: CARVEDILOL 12.5MG TABLET PO SCH (09:00)
[2019-01-06] MEDS: ISOSORBIDE MONONITRATE 30MG TABLET SR 24HR PO SCH (09:00)
== END 2019-01-06 09:05 | disposition home or self-care (01) | DRG 198 ==
LOC: ER 05:02 → 6WST 06:22 → EDBEDREQTM 06:39 → EDBEDREQ 06:39 → ENRESERV 07:28
PROVIDERS: ADMIT Internal Medicine Pulmonary Disease; ATTEND Internal Medicine Pulmonary Disease
DX: R07.89 Other chest pain (principal); I25.10 Atherosclerotic heart disease of native coronary artery without angina pectoris; I50.23 Acute on chronic systolic (congestive) heart failure; F20.9 Schizophrenia, unspecified; I42.9 Cardiomyopathy, unspecified; I11.0 Hypertensive heart disease with heart failure; I25.2 Old myocardial infarction; E66.9 Obesity, unspecified; F10.10 Alcohol abuse, uncomplicated; F14.10 Cocaine abuse, uncomplicated; F31.9 Bipolar disorder, unspecified; F16.10 Hallucinogen abuse, uncomplicated; M54.5 Low back pain; F41.9 Anxiety disorder, unspecified; G89.29 Other chronic pain; R55 Syncope and collapse; I44.0 Atrioventricular block, first degree; J44.9 Chronic obstructive pulmonary disease, unspecified; Z79.02 Long term (current) use of antithrombotics/antiplatelets; Z79.899 Other long term (current) drug therapy; Z87.891 Personal history of nicotine dependence; Z91.19 Patient's noncompliance with other medical treatment and regimen; Z95.5 Presence of coronary angioplasty implant and graft; Z95.810 Presence of automatic (implantable) cardiac defibrillator; Z91.018 Allergy to other foods; Z82.49 Family history of ischemic heart disease and other diseases of the circulatory system; Z81.8 Family history of other mental and behavioral disorders; Z68.34 Body mass index [BMI] 34.0-34.9, adult
CPT/HCPCS: 36415; 71045; 80048; 80053; 80305; 82550; 82553; 83735; 83880; 84100; 84484; 85025; 93005; 94640; 96374; 96375; 99291; J0360; J1650; J1885; J1940; J2270; J2405; J7620

== ENCOUNTER 2019-01-22 16:37 | Inpatient (IN) | payer MEDICAID ==
[~2019-01-22] VITALS: Ht 170.2 cm; Wt 102.3 kg
[~2019-01-22 16:37] MED LIST changes: +ALPR1TAB2 PO; -ASPI-1393 PO; -ATOR40TA70 PO; -CARV12.545 PO; -CLOP75TA15 PO; +CLOP75TA4 MT; +COR12 MT; -FERR325T6 PO; +FURO-151 MT; -FURO-151 PO; -HYDR-4001 PO; -LISI-186 PO; +LISI-604 MT; -OMEP20CA4 PO; -PARO30TA62 PO; -RISP4 PO
[2019-01-22] MEDS ORDERED: ASPIRIN 81MG TABLET PO ONE (17:00)
[2019-01-22 17:21] LABS: BASOPHILS % 0.5 % (0.0-2.0); EOSINOPHILS % 2.1 % (0.0-5.0); HEMATOCRIT. 43.9 % (42.0-52.0); HEMOGLOBIN. 14.3 g/dL (14.0-18.0); MEAN CORPUSCULAR HEMOGLOBIN 28.6 pg (28.0-32.0); MEAN CORPUSCULAR VOLUME 87.5 fL (80.0-94.0); MEAN PLATELET VOLUME 9.3 fl (7.4-10.4); MONOCYTES % 9.1 % (2.0-8.0); NEUTROPHILS % 71.3 % (40.0-76.0); PLATELET 176 x1000/uL (130-400); RED BLOOD CELL COUNT 5.02 mill/uL (4.7-6.1); RED CELL DISTRIBUTION WIDTH 17.7 % (11.6-14.6)
[2019-01-22 17:23] LABS: CHLORIDE 106 mEq/L (98-107)
[2019-01-22] MEDS ORDERED: FUROSEMIDE 40MG/4ML VIAL IVP ONE (18:00)
[2019-01-22] MEDS ORDERED: NITROGLYCERIN 0.1MG/HR PATCH TOP ONE (18:15)
[2019-01-22] MEDS ORDERED: LABETALOL HCL 20MG/4ML CARPUJECT IV ONE (18:30)
[2019-01-22] MEDS ORDERED: LABETALOL 5MG/ML SYR 20 MG/4 ML SYRINGE IV SCH (18:45)
[2019-01-22] MEDS ORDERED: LORAZEPAM 1MG TABLET PO ONE (19:00)
[2019-01-22 20:02] LABS: *BENZODIAZEPINES SCREEN URINE NEGATIVE (NEGATIVE); *COCAINE SCREEN URINE NEGATIVE (NEGATIVE)
[2019-01-22 20:03] LABS: *AMPHETAMINES SCREEN URINE NEGATIVE (NEGATIVE); *BARBITURATES SCREEN URINE NEGATIVE (NEGATIVE); CANNABINOID URINE SCREEN NEGATIVE (NEGATIVE); METHADONE URINE SCREEN NEGATIVE (NEGATIVE); OPIATES URINE SCREEN NEGATIVE (NEGATIVE); PHENCYCLIDINE URINE SCREEN NEGATIVE (NEGATIVE)
[2019-01-22 20:50] VITALS: BP 144/95
[2019-01-22 21:00] VITALS: BP 144/95
[2019-01-22] MEDS ORDERED: ACETAMINOPHEN 325MG TABLET PO PRN (22:30)
[2019-01-22] MEDS ORDERED: CLONIDINE 0.1MG TABLET PO PRN (22:30)
[2019-01-22] MEDS ORDERED: DOCUSATE SODIUM 100MG CAPSULE PO PRN (22:30)
[2019-01-22] MEDS ORDERED: NITROGLYCERIN 0.4MG TABLET SL SL PRN (22:45)
[2019-01-22] MEDS ORDERED: TRAMADOL 50MG TABLET PO PRN (22:45)
[2019-01-22] MEDS ORDERED: FUROSEMIDE 40MG/4ML VIAL IVP SCH (23:30)
[2019-01-22] MEDS: ISOSORBIDE MONONITRATE 30MG TABLET SR 24HR PO SCH (23:30)
[2019-01-22] MEDS: AMLODIPINE 5MG TABLET PO SCH (23:30)
[2019-01-22] MEDS: TRAMADOL 50MG TABLET PO PRN (23:31)
[2019-01-23] VITALS: BP 160/103
[2019-01-23 04:00] VITALS: BP 109/78
[2019-01-23] MEDS ORDERED: FUROSEMIDE 40MG/4ML VIAL IVP SCH ×2 (06:00→09:00)
[2019-01-23] MEDS: TRAMADOL 50MG TABLET PO PRN ×2 (06:08→17:45)
[2019-01-23 08:00] VITALS: BP 138/74
[2019-01-23 08:17] LABS: CHLORIDE 105 mEq/L (98-107)
[2019-01-23 08:18] LABS: CREATINE KINASE MB FRACTION 2.3 ng/mL (0.5-3.6)
[2019-01-23 08:28] LABS: PHOSPHORUS 4.4 mg/dL (2.5-4.9)
[2019-01-23] MEDS ORDERED: POTASSIUM CHLORIDE 20MEQ TABLET SR PO SCH ×3 (09:00→15:30)
[2019-01-23] MEDS: ISOSORBIDE MONONITRATE 30MG TABLET SR 24HR PO SCH (09:58)
[2019-01-23] MEDS: CLOPIDOGREL 75MG TABLET PO SCH (09:58)
[2019-01-23] MEDS: AMLODIPINE 5MG TABLET PO SCH (09:59)
[2019-01-23] MEDS: CARVEDILOL 12.5MG TABLET PO SCH ×2 (09:59→21:00)
[2019-01-23] MEDS: ENOXAPARIN 30MG/0.3ML SYR SUBCUT SCH ×3 (09:59→21:28)
[2019-01-23 12:00] VITALS: BP 102/77
[2019-01-23] MEDS: IPRATROPIUM/ALBUTEROL 0.5-3(2.5)MG/3ML NEB HHN SCH ×4 (13:10→20:00)
[2019-01-23 16:00] VITALS: BP 109/71
[2019-01-23] MEDS ORDERED: TRAMADOL 50MG TABLET PO PRN (16:45)
[2019-01-23] MEDS: FUROSEMIDE 100MG/10ML VIAL IV SCH (17:45)
[2019-01-23] MEDS ORDERED: LORAZEPAM 1MG TABLET PO NR (18:00)
[2019-01-23 20:00] VITALS: BP 111/71
[2019-01-23] MEDS ORDERED: LORAZEPAM 1MG TABLET PO PRN (20:00)
[2019-01-23] MEDS: POTASSIUM CHLORIDE 20MEQ TABLET SR PO SCH (21:27)
[2019-01-23] MEDS: FAMOTIDINE 20MG TABLET PO SCH (22:12)
[2019-01-24] VITALS: BP 137/96
[2019-01-24] MEDS: IPRATROPIUM/ALBUTEROL 0.5-3(2.5)MG/3ML NEB HHN SCH ×3 (00:03→21:09)
[2019-01-24 04:00] VITALS: BP 123/96
[2019-01-24] MEDS: FUROSEMIDE 100MG/10ML VIAL IV SCH ×4 (05:45→11:06)
[2019-01-24 07:42] LABS: BASOPHILS % 0.5 % (0.0-2.0); EOSINOPHILS % 2.8 % (0.0-5.0); HEMATOCRIT. 42.8 % (42.0-52.0); LYMPHOCYTES % 26.3 % (20.0-50.0); MEAN CORPUSCULAR HEMOGLOBIN 28.5 pg (28.0-32.0); MEAN CORPUSCULAR VOLUME 86.8 fL (80.0-94.0); MEAN PLATELET VOLUME 9.9 fl (7.4-10.4); MONOCYTES % 11.6 % (2.0-8.0); NEUTROPHILS % 58.8 % (40.0-76.0); PLATELET 166 x1000/uL (130-400); RED BLOOD CELL COUNT 4.93 mill/uL (4.7-6.1); RED CELL DISTRIBUTION WIDTH 17.3 % (11.6-14.6)
[2019-01-24 08:00] VITALS: BP 123/70
[2019-01-24 08:19] LABS: CHLORIDE 106 mEq/L (98-107)
[2019-01-24] MEDS: CARVEDILOL 12.5MG TABLET PO SCH ×2 (09:04→21:53)
[2019-01-24] MEDS: ISOSORBIDE MONONITRATE 30MG TABLET SR 24HR PO SCH (09:04)
[2019-01-24] MEDS: CLOPIDOGREL 75MG TABLET PO SCH (09:04)
[2019-01-24] MEDS: ENOXAPARIN 30MG/0.3ML SYR SUBCUT SCH ×2 (09:05→21:53)
[2019-01-24] MEDS: POTASSIUM CHLORIDE 20MEQ TABLET SR PO SCH ×2 (09:05→11:06)
[2019-01-24] MEDS: AMLODIPINE 5MG TABLET PO SCH (09:05)
[2019-01-24] MEDS: TRAMADOL 50MG TABLET PO PRN ×2 (14:28→22:11)
[2019-01-24 16:00] VITALS: BP 108/81
[2019-01-24 20:00] VITALS: BP 129/80
[2019-01-24] MEDS: FAMOTIDINE 20MG TABLET PO SCH (21:53)
[2019-01-25] VITALS: BP 124/75
[2019-01-25] MEDS: IPRATROPIUM/ALBUTEROL 0.5-3(2.5)MG/3ML NEB HHN SCH ×3 (01:30→12:35)
[2019-01-25 08:00] VITALS: BP 129/81
[2019-01-25] MEDS: ENOXAPARIN 30MG/0.3ML SYR SUBCUT SCH (09:00)
[2019-01-25] MEDS: ISOSORBIDE MONONITRATE 30MG TABLET SR 24HR PO SCH (09:00)
[2019-01-25 09:18] LABS: CHLORIDE 101 mEq/L (98-107)
[2019-01-25] MEDS: CLOPIDOGREL 75MG TABLET PO SCH (09:32)
[2019-01-25] MEDS: CARVEDILOL 12.5MG TABLET PO SCH (09:32)
[2019-01-25] MEDS: FUROSEMIDE 100MG/10ML VIAL IV SCH (09:33)
[2019-01-25] MEDS: POTASSIUM CHLORIDE 20MEQ TABLET SR PO SCH (09:33)
[2019-01-25] MEDS: AMLODIPINE 5MG TABLET PO SCH (09:33)
[2019-01-25 10:00] LABS: BASOPHILS % 0.7 % (0.0-2.0); HEMATOCRIT. 45.4 % (42.0-52.0); HEMOGLOBIN. 14.8 g/dL (14.0-18.0); LYMPHOCYTES % 21.4 % (20.0-50.0); MEAN CORPUSCULAR HEMOGLOBIN 28.3 pg (28.0-32.0); MEAN CORPUSCULAR VOLUME 86.6 fL (80.0-94.0); MEAN PLATELET VOLUME 9.9 fl (7.4-10.4); MONOCYTES % 12.2 % (2.0-8.0); NEUTROPHILS % 63.7 % (40.0-76.0); PLATELET 180 x1000/uL (130-400); RED BLOOD CELL COUNT 5.24 mill/uL (4.7-6.1); RED CELL DISTRIBUTION WIDTH 17.3 % (11.6-14.6)
[2019-01-25 12:32] VITALS: BP 128/70
== END 2019-01-25 13:40 | disposition home or self-care (01) | DRG 194 ==
LOC: ER 16:46 → 5WST 18:49 → EDBEDREQTM 18:50 → EDBEDREQ 18:50 → ENRESERV 19:16 → CANRESERV 19:16 → ENRESERV 19:51
PROVIDERS: ADMIT Specialist; ATTEND Specialist
DX: I11.0 Hypertensive heart disease with heart failure (principal); I42.0 Dilated cardiomyopathy; D63.8 Anemia in other chronic diseases classified elsewhere; E66.09 Other obesity due to excess calories; I48.0 Paroxysmal atrial fibrillation; R55 Syncope and collapse; I50.23 Acute on chronic systolic (congestive) heart failure; I25.5 Ischemic cardiomyopathy; E78.5 Hyperlipidemia, unspecified; F41.9 Anxiety disorder, unspecified; G89.4 Chronic pain syndrome; E87.6 Hypokalemia; F14.90 Cocaine use, unspecified, uncomplicated; F17.210 Nicotine dependence, cigarettes, uncomplicated; I25.10 Atherosclerotic heart disease of native coronary artery without angina pectoris; J44.9 Chronic obstructive pulmonary disease, unspecified; Z95.5 Presence of coronary angioplasty implant and graft; Z95.810 Presence of automatic (implantable) cardiac defibrillator; Z82.3 Family history of stroke; Z82.49 Family history of ischemic heart disease and other diseases of the circulatory system; Z68.35 Body mass index [BMI] 35.0-35.9, adult; Z79.899 Other long term (current) drug therapy; Z79.02 Long term (current) use of antithrombotics/antiplatelets; Z71.6 Tobacco abuse counseling
CPT/HCPCS: 36415; 71045; 80048; 80305; 82550; 82553; 83735; 83880; 84100; 84484; 93005; 99285; J1650; J1940; J3490; J7620

== ENCOUNTER 2019-02-22 10:58 | Inpatient (IN) | payer MEDICAID ==
[~2019-02-22] VITALS: Ht 170.2 cm; Wt 108.9 kg
[~2019-02-22 10:58] MED LIST changes: -CLOP75TA4 MT; +CLOP75TA4 PO; -COR12 MT; +COR12 PO; -FURO-151 MT; +FURO-151 PO; -LISI-604 MT; +LISI-604 PO; -POTA20TA82 MT; +POTA20TA82 PO
[2019-02-22] MEDS: NITROGLYCERIN OINT 1GM/INCH UDPKT TD ONE ×2 (11:45→11:49)
[2019-02-22 12:02] LABS: BASOPHILS % 0.6 % (0.0-2.0); EOSINOPHILS % 0.9 % (0.0-5.0); HEMOGLOBIN. 14.6 g/dL (14.0-18.0); LYMPHOCYTES % 19.4 % (20.0-50.0); MEAN CORPUSCULAR HEMOGLOBIN 28.7 pg (28.0-32.0); MEAN CORPUSCULAR VOLUME 86.4 fL (80.0-94.0); MEAN PLATELET VOLUME 9.2 fl (7.4-10.4); MONOCYTES % 9.4 % (2.0-8.0); NEUTROPHILS % 69.7 % (40.0-76.0); PLATELET 180 x1000/uL (130-400); RED BLOOD CELL COUNT 5.09 mill/uL (4.7-6.1); RED CELL DISTRIBUTION WIDTH 17.6 % (11.6-14.6)
[2019-02-22 12:09] LABS: CHLORIDE 109 mEq/L (98-107)
[2019-02-22 12:12] LABS: PROTHROMBIN TIME 9.9 sec (9.6-11.0)
[2019-02-22 12:14] LABS: ETHANOL BLOOD < 10 mg/dL
[2019-02-22] MEDS ORDERED: CARVEDILOL 12.5MG TABLET PO NR (17:01)
[2019-02-22] MEDS ORDERED: ASPIRIN 81MG EC TABLET PO NR (17:03)
[2019-02-22] MEDS ORDERED: CLOPIDOGREL 75MG TABLET PO NR (17:03)
[2019-02-22] MEDS: FUROSEMIDE 40MG/4ML VIAL IVP NR ×2 (17:50→17:58)
[2019-02-22 19:38] LABS: *AMPHETAMINES SCREEN URINE NEGATIVE (NEGATIVE); *BARBITURATES SCREEN URINE NEGATIVE (NEGATIVE); *BENZODIAZEPINES SCREEN URINE NEGATIVE (NEGATIVE); *COCAINE SCREEN URINE NEGATIVE (NEGATIVE); METHADONE URINE SCREEN NEGATIVE (NEGATIVE); OPIATES URINE SCREEN NEGATIVE (NEGATIVE)
[2019-02-22 19:39] LABS: CANNABINOID URINE SCREEN NEGATIVE (NEGATIVE); PHENCYCLIDINE URINE SCREEN NEGATIVE (NEGATIVE)
[2019-02-22 20:00] VITALS: BP 155/108
[2019-02-22] MEDS ORDERED: ATORVASTATIN CALCIUM 20MG TABLET PO SCH (21:00)
[2019-02-22] MEDS: FUROSEMIDE 40MG/4ML VIAL IVP SCH (22:00)
[2019-02-22] MEDS: ALPRAZOLAM 0.25 MG TABLET PO PRN (22:00)
[2019-02-22 23:21] VITALS: BP 155/108
[2019-02-22] MEDS ORDERED: CLONIDINE 0.1MG TABLET PO PRN (23:45)
[2019-02-23 05:51] VITALS: BP 158/90
[2019-02-23] MEDS: FUROSEMIDE 40MG/4ML VIAL IVP SCH (06:37)
[2019-02-23 08:00] VITALS: BP 146/93
[2019-02-23] MEDS ORDERED: IBUPROFEN 800MG TABLET PO SCH (08:15)
[2019-02-23 08:50] LABS: HEMATOCRIT 42.9 % (42.0-52.0); MEAN CORPUSCULAR HEMOGLOBIN 28.3 pg (28.0-32.0); MEAN CORPUSCULAR VOLUME 86.4 fL (80.0-94.0); PLATELET 164 x1000/uL (130-400); RED BLOOD CELL COUNT 4.96 mill/uL (4.7-6.1); RED CELL DISTRIBUTION WIDTH 17.3 % (11.6-14.6)
[2019-02-23] MEDS ORDERED: CARVEDILOL 12.5MG TABLET PO SCH ×2 (09:00→21:00)
[2019-02-23] MEDS ORDERED: LISINOPRIL 20MG TABLET PO SCH (09:00)
[2019-02-23] MEDS ORDERED: ASPIRIN 81MG EC TABLET PO SCH (09:00)
[2019-02-23] MEDS ORDERED: CLOPIDOGREL 75MG TABLET PO SCH (09:00)
[2019-02-23] MEDS ORDERED: ENOXAPARIN 30MG/0.3ML SYR SUBCUT SCH (09:00)
[2019-02-23 09:02] LABS: CHLORIDE 106 mEq/L (98-107)
[2019-02-23 12:00] VITALS: BP 172/79
[2019-02-23] MEDS ORDERED: ALBUTEROL (0.083%) 2.5MG/3ML NEB HHN PRN (13:00)
[2019-02-23] MEDS: ALPRAZOLAM 0.25 MG TABLET PO PRN (14:13)
== END 2019-02-23 15:25 | disposition left against medical advice (07) | DRG 194 ==
LOC: ER 11:17 → 5WST 13:17 → EDBEDREQ 13:27 → EDBEDREQTM 13:27 → ENRESERV 17:41 → 5WST 19:16
PROVIDERS: ADMIT Ophthalmology; ATTEND Ophthalmology
DX: I11.0 Hypertensive heart disease with heart failure (principal); I24.9 Acute ischemic heart disease, unspecified; I50.23 Acute on chronic systolic (congestive) heart failure; E78.5 Hyperlipidemia, unspecified; F17.200 Nicotine dependence, unspecified, uncomplicated; I25.10 Atherosclerotic heart disease of native coronary artery without angina pectoris; E66.9 Obesity, unspecified; I25.5 Ischemic cardiomyopathy; Z53.29 Procedure and treatment not carried out because of patient's decision for other reasons; J44.9 Chronic obstructive pulmonary disease, unspecified; Z91.14 Patient's other noncompliance with medication regimen; Z91.19 Patient's noncompliance with other medical treatment and regimen; I25.2 Old myocardial infarction; Z95.5 Presence of coronary angioplasty implant and graft; Z95.810 Presence of automatic (implantable) cardiac defibrillator; Z88.8 Allergy status to other drugs, medicaments and biological substances; Z82.49 Family history of ischemic heart disease and other diseases of the circulatory system; Z71.6 Tobacco abuse counseling; Z68.37 Body mass index [BMI] 37.0-37.9, adult
CPT/HCPCS: 36415; 71045; 80048; 80053; 80305; 80320; 83735; 83880; 84484; 85025; 85027; 93005; 94640; 99285; J1650; J1940; G0480

== ENCOUNTER 2019-03-16 10:49 | Inpatient (IN) | payer MEDICAID ==
[~2019-03-16] VITALS: Ht 167.6 cm; Wt 104.3 kg
[2019-03-16] MEDS ORDERED: ALBUTEROL (0.083%) 2.5MG/3ML NEB HHN STA (11:21)
[2019-03-16] MEDS ORDERED: ASPIRIN 81MG TABLET PO ONE (11:30)
[2019-03-16 12:11] LABS: BASOPHILS % 0.8 % (0.0-2.0); EOSINOPHILS % 1.3 % (0.0-5.0); HEMATOCRIT. 46.8 % (42.0-52.0); HEMOGLOBIN. 15.3 g/dL (14.0-18.0); LYMPHOCYTES % 19.9 % (20.0-50.0); MEAN CORPUSCULAR HEMOGLOBIN 28.1 pg (28.0-32.0); MEAN CORPUSCULAR VOLUME 86.2 fL (80.0-94.0); MEAN PLATELET VOLUME 9.6 fl (7.4-10.4); MONOCYTES % 10.2 % (2.0-8.0); NEUTROPHILS % 67.8 % (40.0-76.0); PLATELET 197 x1000/uL (130-400); RED BLOOD CELL COUNT 5.43 mill/uL (4.7-6.1); RED CELL DISTRIBUTION WIDTH 16.6 % (11.6-14.6)
[2019-03-16 12:36] LABS: CHLORIDE 107 mEq/L (98-107)
[2019-03-16] MEDS ORDERED: CLOPIDOGREL 75MG TABLET PO NR (18:00)
[2019-03-16] MEDS ORDERED: CARVEDILOL 6.25 MG TABLET PO NR (18:00)
[2019-03-16] MEDS ORDERED: FUROSEMIDE 40MG/4ML VIAL IVP NR (18:00)
[2019-03-16 19:28] LABS: *AMPHETAMINES SCREEN URINE NEGATIVE (NEGATIVE); *BARBITURATES SCREEN URINE NEGATIVE (NEGATIVE); *BENZODIAZEPINES SCREEN URINE NEGATIVE (NEGATIVE); *COCAINE SCREEN URINE NEGATIVE (NEGATIVE); METHADONE URINE SCREEN NEGATIVE (NEGATIVE)
[2019-03-16 19:29] LABS: CANNABINOID URINE SCREEN NEGATIVE (NEGATIVE); OPIATES URINE SCREEN NEGATIVE (NEGATIVE); PHENCYCLIDINE URINE SCREEN NEGATIVE (NEGATIVE)
[2019-03-16] MEDS ORDERED: TEMAZEPAM 15MG CAPSULE PO PRN (21:00)
[2019-03-16] MEDS ORDERED: DIPHENHYDRAMINE 50MG/ML VIAL IV PRN (21:00)
[2019-03-16] MEDS ORDERED: MAGNESIUM/ALUMINUM HYDROXIDE/SIMETHICONE 30ML UDC PO PRN (21:00)
[2019-03-16] MEDS ORDERED: ONDANSETRON HCL 4MG/2ML INJ IV PRN (21:00)
[2019-03-16] MEDS ORDERED: CLONIDINE 0.1MG TABLET PO PRN (21:00)
[2019-03-16] MEDS ORDERED: MAGNESIUM HYDROXIDE 400MG/5ML 30ML UDC PO PRN (21:00)
[2019-03-16] MEDS ORDERED: ALPRAZOLAM 0.5 MG TABLET PO PRN ×2 (21:00→21:15)
[2019-03-16] MEDS ORDERED: ACETAMINOPHEN 325MG TABLET PO PRN (21:00)
[2019-03-16] MEDS ORDERED: IPRATROPIUM/ALBUTEROL 0.5-3(2.5)MG/3ML NEB HHN PRN (21:00)
[2019-03-16] MEDS ORDERED: ATORVASTATIN CALCIUM 40MG TABLET PO SCH (21:00)
[2019-03-16 22:30] VITALS: BP 120/53
[2019-03-16] MEDS: PANTOPRAZOLE 40MG DR TABLET PO SCH (23:55)
[2019-03-16] MEDS: QUETIAPINE FUMARATE 50MG TABLET PO SCH (23:55)
[2019-03-17] VITALS: BP 142/75
[2019-03-17 04:00] VITALS: BP 136/68
[2019-03-17 06:27] LABS: BASOPHILS % 0.5 % (0.0-2.0); EOSINOPHILS % 2.9 % (0.0-5.0); HEMOGLOBIN. 14.2 g/dL (14.0-18.0); LYMPHOCYTES % 21.7 % (20.0-50.0); MEAN CORPUSCULAR HEMOGLOBIN 27.4 pg (28.0-32.0); MEAN PLATELET VOLUME 10.1 fl (7.4-10.4); NEUTROPHILS % 64.9 % (40.0-76.0); PLATELET 154 x1000/uL (130-400); RED BLOOD CELL COUNT 5.17 mill/uL (4.7-6.1); RED CELL DISTRIBUTION WIDTH 16.9 % (11.6-14.6)
[2019-03-17 08:00] VITALS: BP 133/87
[2019-03-17] MEDS ORDERED: CLOPIDOGREL 75MG TABLET PO SCH (09:00)
[2019-03-17] MEDS ORDERED: ASPIRIN 81MG EC TABLET PO SCH (09:00)
[2019-03-17] MEDS ORDERED: CARVEDILOL 3.125 MG TABLET PO SCH (09:00)
[2019-03-17] MEDS ORDERED: FUROSEMIDE 40MG/4ML VIAL IVP SCH (09:00)
[2019-03-17 09:42] LABS: CHLORIDE 103 mEq/L (98-107)
[2019-03-17] MEDS: POTASSIUM CHLORIDE 20MEQ TABLET SR PO SCH ×2 (09:45→16:19)
[2019-03-17] MEDS: PANTOPRAZOLE 40MG DR TABLET PO SCH (09:46)
[2019-03-17] MEDS: CARVEDILOL 12.5MG TABLET PO SCH ×2 (09:46→21:26)
[2019-03-17] MEDS: LISINOPRIL 20MG TABLET PO SCH (09:46)
[2019-03-17] MEDS: FUROSEMIDE 40MG/4ML VIAL IVP SCH ×2 (09:47→16:19)
[2019-03-17] MEDS: ASPIRIN 81MG EC TABLET PO SCH (09:47)
[2019-03-17] MEDS: CLOPIDOGREL 75MG TABLET PO SCH (09:47)
[2019-03-17 12:00] VITALS: BP 125/90
[2019-03-17] MEDS: SODIUM CHLORIDE 0.9% INJ 3ML FLUSH IVF SCH ×2 (14:00→21:31)
[2019-03-17 16:00] VITALS: BP 137/78
[2019-03-17 20:00] VITALS: BP 107/70
[2019-03-17] MEDS ORDERED: ATORVASTATIN CALCIUM 20MG TABLET PO SCH (21:00)
[2019-03-17] MEDS: QUETIAPINE FUMARATE 50MG TABLET PO SCH (21:26)
[2019-03-17] MEDS: FAMOTIDINE 20MG TABLET PO SCH (21:26)
[2019-03-18] VITALS: BP 118/69
[2019-03-18 04:00] VITALS: BP 121/97
[2019-03-18] MEDS: SODIUM CHLORIDE 0.9% INJ 3ML FLUSH IVF SCH ×2 (06:28→14:00)
[2019-03-18 08:00] VITALS: BP 85/58
[2019-03-18] MEDS: FAMOTIDINE 20MG TABLET PO SCH (08:39)
[2019-03-18] MEDS: ASPIRIN 81MG EC TABLET PO SCH (08:40)
[2019-03-18] MEDS: FUROSEMIDE 40MG/4ML VIAL IVP SCH ×2 (08:40→08:56)
[2019-03-18] MEDS: CLOPIDOGREL 75MG TABLET PO SCH (08:40)
[2019-03-18] MEDS: POTASSIUM CHLORIDE 20MEQ TABLET SR PO SCH (08:40)
[2019-03-18] MEDS: CARVEDILOL 12.5MG TABLET PO SCH (09:00)
[2019-03-18] MEDS: LISINOPRIL 20MG TABLET PO SCH (09:00)
[2019-03-18 12:11] VITALS: BP 112/82
[2019-03-18 15:02] VITALS: BP 112/82
== END 2019-03-18 15:17 | disposition home or self-care (01) | DRG 194 ==
LOC: ER 10:49 → 7WST 13:13 → EDBEDREQ 20:00 → ENRESERV 20:25
PROVIDERS: ADMIT Ophthalmology; ATTEND Ophthalmology
DX: I11.0 Hypertensive heart disease with heart failure (principal); E66.01 Morbid (severe) obesity due to excess calories; Z79.01 Long term (current) use of anticoagulants; I50.23 Acute on chronic systolic (congestive) heart failure; E78.5 Hyperlipidemia, unspecified; F17.200 Nicotine dependence, unspecified, uncomplicated; F41.1 Generalized anxiety disorder; I25.10 Atherosclerotic heart disease of native coronary artery without angina pectoris; J44.9 Chronic obstructive pulmonary disease, unspecified; K21.9 Gastro-esophageal reflux disease without esophagitis; F99 Mental disorder, not otherwise specified; Z79.02 Long term (current) use of antithrombotics/antiplatelets; Z98.61 Coronary angioplasty status; Z95.810 Presence of automatic (implantable) cardiac defibrillator; Z91.19 Patient's noncompliance with other medical treatment and regimen; I25.2 Old myocardial infarction; Z68.37 Body mass index [BMI] 37.0-37.9, adult; Z91.018 Allergy to other foods; Z79.899 Other long term (current) drug therapy
CPT/HCPCS: 36415; 71045; 80053; 80305; 83735; 83880; 84484; 85025; 93005; 93970; 94640; 99285; J1940

== ENCOUNTER 2019-04-13 11:19 | Emergency (ER) | payer MEDICAID ==
[~2019-04-13] VITALS: Ht 165.1 cm; Wt 109.0 kg
[2019-04-13 11:23] VITALS: BP 160/82
[2019-04-13] MEDS ORDERED: NITROGLYCERIN 0.4MG TABLET SL SL PRN (12:15)
[2019-04-13] MEDS ORDERED: ASPIRIN 81MG TABLET PO ONE (12:15)
[2019-04-13 12:28] LABS: BASOPHILS % 0.5 % (0.0-2.0); EOSINOPHILS % 1.4 % (0.0-5.0); LYMPHOCYTES % 13.2 % (20.0-50.0); MEAN CORPUSCULAR HEMOGLOBIN 28.4 pg (28.0-32.0); MEAN CORPUSCULAR VOLUME 86.9 fL (80.0-94.0); MONOCYTES % 5.6 % (2.0-8.0); NEUTROPHILS % 79.3 % (40.0-76.0); PLATELET 147 x1000/uL (130-400); RED BLOOD CELL COUNT 5.29 mill/uL (4.7-6.1); RED CELL DISTRIBUTION WIDTH 16.8 % (11.6-14.6)
[2019-04-13 12:33] LABS: CHLORIDE 105 mEq/L (98-107)
[2019-04-13 12:38] LABS: ETHANOL BLOOD < 10 mg/dL
== END 2019-04-13 13:10 | disposition left against medical advice (07) ==
LOC: ER 11:19 → CANBEDREQ 16:54
DX: R07.89 Other chest pain (principal); I11.9 Hypertensive heart disease without heart failure; J44.9 Chronic obstructive pulmonary disease, unspecified; J45.909 Unspecified asthma, uncomplicated; Z99.81 Dependence on supplemental oxygen; I25.2 Old myocardial infarction
CPT/HCPCS: 36415; 80053; 80320; 83880; 84484; 85025; 93005; 99284; G0480

== ENCOUNTER 2019-09-08 18:49 | Emergency (ER) | payer MEDICAID ==
[~2019-09-08] VITALS: Ht 170.2 cm; Wt 109.0 kg
[2019-09-08 18:56] VITALS: BP 182/113
== END 2019-09-08 22:54 | disposition left against medical advice (07) ==
LOC: ER 18:49
DX: Z53.21 Procedure and treatment not carried out due to patient leaving prior to being seen by health care provider (principal); R06.02 Shortness of breath
CPT/HCPCS: 93005